=== PATIENT | male | born 1965 | race Caucasian/White ===

== ENCOUNTER → 2019-01-14 08:42 | Outpatient (CLI) | payer MEDICAID, SELFPAY ==
--- NOTE | 2019-01-14 08:45 | XR_ITS ---
PROCEDURE: XR SHOULDER LT MIN 2V CLINICAL INDICATION: left scapula fracture follow up Pain COMPARISON: XR SHOULDER LT MIN 2V from 12/27/2018 CT SHOULDER LT WO CON from 12/27/2018 FINDINGS: There is a mildly displaced fracture involving the mid to lower portion of the scapula. The distal fracture fragment is displaced laterally by 10 mm. There is dorsal displacement of the distal fracture fragment by 19 mm. The fracture margins are somewhat less distinct. Healing fractures are present involving the lateral aspect of the left 3rd 4th and 5th ribs. The glenohumeral joint and acromioclavicular joint are unremarkable. IMPRESSION: Healing displaced scapular fracture and healing left-sided rib fractures Dictated by: Kvein Garza MD 01/14/2019 09:47 Electronically signed by Kevin Garza MD in [place] 01/14/2019 09:47
== END ==
PROVIDERS: PCP Nurse Practitioner Family; Visit Provider Orthopaedic Surgery
DX: S42.112A Displaced fracture of body of scapula, left shoulder, initial encounter for closed fracture (principal)
CPT/HCPCS: 73030

== ENCOUNTER 2023-08-16 19:45 | Day surgery (SDC) | payer MEDICAID, SELFPAY ==
[2023-08-16] VITALS (12 sets, daily range): BP systolic 120–157; BP diastolic 67–106; PULSE 84–106; RESP 13–20; TEMP 36.5–36.6; O2SAT 93–100; BMI 21.7
--- NOTE | 2023-08-16 20:14 | XR_ITS ---
PROCEDURE INFORMATION: Exam: XR Left Femur Exam date and time: 08/16/2023 8:38 PM Age: 58 years old Clinical indication: Injury or trauma; Other: Cut leg with saw; Blunt trauma; Knee; Left; Additional info: Saw injury TECHNIQUE: Imaging protocol: Radiologic exam of the left femur. Views: 2 views. COMPARISON: No relevant prior studies available. FINDINGS: Bones/joints: Intramedullary macy identified within the proximal tibia. Soft tissues: There is significant soft tissue irregularity along the lateral distal femur with subcutaneous gas but no evidence for underlying osseous injury or radiopaque foreign body. Vasculature: Scattered atherosclerotic disease of the arterial vasculature. IMPRESSION: There is significant soft tissue irregularity along the lateral distal femur with subcutaneous gas but no evidence for underlying osseous injury or radiopaque foreign body.
[2023-08-16 20:23] LABS: Chloride 96 mmol/L (98-107); Potassium 3.6 mmoL/L (3.5-5.1); Sodium 130 mmol/L (136-145)
--- NOTE | 2023-08-16 20:23 | PC.NURSE ---
Spoke with Dr. Carbone and surgery team.
[2023-08-16 20:26] LABS: Alanine Aminotransferase 118 U/L (12-78); Albumin Level 4.7 g/dl (3.5-5.0); Albumin/Globulin Ratio 1.6 (1.1-1.8); Alkaline Phosphatase 95 U/L (38-126); Anion Gap 16.6 mEq/L (5-15); Aspartate Amino Transferase 104 U/L (17-59); Basophils # 0.1 K/mm3 (0-0.2); Bilirubin,Total 0.6 mg/dl (0.2-1.3); Blood Urea Nitrogen 5 mg/dl (9-20); Calcium 9.1 mg/dl (8.4-10.2); Carbon Dioxide 21 mmol/L (22.0-30.0); Creatinine Clearance Estimated 97 mL/min (50-200); Eosinophils % 0.9 % (0.1-12.0); Estimated Glomerular Filt Rate 115 ml/min (>60); GFR (African American) 139 ML/MIN (>60); Globulin 2.9 g/dL (1.3-3.2); Glucose 89 mg/dl (74-100); Hematocrit 43.1 % (42.0-52.0); Hemoglobin 14.4 g/dL (14.1-18.0); Lymphocytes # 1.8 K/mm3 (0.7-4.5); Lymphocytes % 38.3 % (10-50); Mean Corpuscular HGB Conc 33.5 g/dL (31.8-35.4); Mean Corpuscular Volume 95.5 fl (80-94); Mean Platelet Volume 7.8 fl (7.4-10.4); Monocytes # 0.6 K/mm3 (0.1-1.0); Monocytes % 12.7 % (1.7-9.3); Neutrophils # 2.2 K/mm3 (1.8-7.8); Neutrophils % 46.1 % (37.0-80.0); Platelet Count 210 K/mm3 (142-424); Red Blood Count 4.51 M/mm3 (4.60-6.20); Red Cell Distribution Width 13.2 % (11.5-17.5); Total Protein,Serum 7.6 g/dl (6.3-8.2); White Blood Count 4.8 K/mm3 (4.8-10.8)
[2023-08-16 20:33] LABS: Activated Partial Thrombo Time 30.7 seconds (22.8-30.6); INR 0.95 (0.9-1.1); Prothrombin Time 10.3 seconds (10.1-12.5)
[2023-08-16] MEDS: CEFAZOLIN SODIUM 2 GM in 0.9 % SODIUM CHLORIDE 100 ML IV (20:40)
[2023-08-16] MEDS: TET/DIPHTH/PERT-ADULT 0.5ML SYRINGE 0.5 ML IM (20:41)
--- NOTE | 2023-08-16 20:42 | ED_ITS ---
Discharge Plan Disposition Patient Disposition: Admitted Chief Complaint: Extremity Injury, Lower Referrals Follow up/Referrals: Sriia Judge APRN [Primary Care Provider] - See instructions Clinical Impressions Clinical Impression: Laceration of thigh, left, complicated Discharge ED Provider: Mercedes Swanson General Adult HPI General Chief complaint: Extremity Injury, Lower Stated complaint: LT leg lac Time Seen by Provider: 08/16/23 19:48 Mode of Arrival: Wheelchair Source of Information: Patient Limitations: Physical Limitations Description of Symptoms (Recalled from ER Triage Doc. by RN): Pt presented to ED for large deep laceration to left thigh. Pt stated he was cutting wood with a circular saw and the guard slipped up when he was setting it down and hit his leg. This happened immediately prior to coming into ED. Pt does not have numbness or tingling in leg/foot, pulses palpable. Pt is not on a blood thinner. Bleeding is controlled at this time, pulsation seen in wound. History of Present Illness HPI narrative: This patient is a 58-year-old male presenting to the emergency department for evaluation with concern for large laceration to his left thigh. He reports he was using a circular saw cutting wood when the guard slipped and the saw cut him in the lateral left thigh. This happened just prior to arrival. No other injuries noted. No numbness, tingling, or other concerns. He is not on anticoagulation. He was well prior to this. Related Data Allergies Allergy/AdvReac Type Severity Reaction Status Date / Time morphine [MORPHINE] Allergy Mild Verified 10/12/22 13:15 [facility] Disclaimer: The information contained in this section may have been updated after the patient was seen, as this information can be updated by other users. Surgical History History of appendectomy History of surgery on lower extremity Social History Smoking Status: Never smoker alcohol intake: current alcohol intake frequency: holidays/special occasions only substance use type: denies use current occupational status: other Travel in the last 8 weeks: None ROS Obtained: Yes All systems reviewed & no additional complaints except as documented Physical Exam General General appearance: alert and in no apparent distress Head Head exam: atraumatic and normocephalic Eye Eye exam: Present normal appearance, PERRL and EOMI ENT ENT exam: Present normal exam, normal oropharynx, mucous membranes moist and normal external ear exam Neck Neck exam: Present normal inspection, full ROM and trachea midline; Absent tenderness Chest Chest inspection: Present normal inspection and symmetric chest wall rise; Absent tenderness Respiratory Respiratory exam: Present normal lung sounds bilaterally; Absent respiratory distress, wheezes, stridor or accessory muscle use Cardiovascular Cardiovascular exam: Present regular rate and normal rhythm Abdominal Exam Abdominal exam: Present soft; Absent distention, tenderness or guarding Extremities Exam Extremities exam: Present full ROM and normal capillary refill; Absent tenderness or edema Expanded Lower Extremity Exam Left: Leg image: 2 1. 10 cm irregular thigh laceration with exposed muscle belly. No obvious exposed bone. No notable tendon involvement or injury that is appreciated. Neurovascularly intact distally. Wound is hemostatic. Back Exam Back exam: Present normal inspection and full ROM; Absent tenderness Neurological Exam Neurological exam: Present alert, oriented X3, CN II-XII intact and normal gait; Absent motor sensory deficit Psychiatric Psychiatric exam: Present normal affect and normal mood Skin Skin exam: Present warm and dry Medical Decision Making Medical Records Medical records reviewed: Yes I reviewed the patient's medical records. Toy Inquiry Pt receiving controlled substance: No Vital Signs: 08/16/23 19:46 08/16/23 20:22 Pulse Rate 84 Pulse Rate [Right Brachial] 103 H Respiratory Rate 18 Blood Pressure 152/97 H Blood Pressure [Right Arm] 154/106 H Blood Pressure Mean [Right Arm] 122 02 Sat by Pulse Oximetry 96 95 Oxygen Delivery Method Room Air Lab Data Lab results reviewed: Yes I reviewed the patient's lab results. Lab Results 08/16/23 20:00: WBC 4.8, RBC 4.51 L, Hgb 14.4, Hct 43.1, MCV 95.5 H, MCH 32.0 H, MCHC 33.5, RDW 13.2, Plt Count 210, MPV 7.8, Neut % (Auto) 46.1, Lymph % (Auto) 38.3, [place]ock[place] % (Auto) 12.7 H, Eos % (Auto) 0.9, Baso % (Auto) 2.0, Neut # (Auto) 2.2, Lymph # (Auto) 1.8, [place]ock[place] # (Auto) 0.6, Eos # (Auto) 0.0, Baso # (Auto) 0.1, PT 10.3, INR 0.95, APTT 30.7 H, Sodium 130 L, Potassium 3.6, Chloride 96 L, C arbon Dioxide 21 L, Anion Gap 16.6 H, BUN 5 L, Creatinine 0.70, Estimated Creat Clear 97, Estimated GFR 115, Est GFR ( Amer) 139, Glucose 89, Calcium 9.1, Total Bilirubin 0.6, AST 104 H, ALT 118 H, Alkaline Phosphatase 95, Total Protein 7.6, Albumin 4.7, Globulin 2.9, Albumin/Globulin Ratio 1.6 08/16/23 20:00 08/16/23 20:00 Orders (Tests/Meds): ED MEDICATIONS Discontinued Medications Generic Name Dose Route Start Last Admin Trade Name Freq PRN Reason Stop Dose Admin Cefazolin Sodium 2 gm/ Sodium 100 mls @ 200 mls/hr 08/16/23 20:15 08/16/23 20:40 Chloride IV 08/16/23 20:44 200 mls/hr ONCE ONE Administration Tetanus/Reduced Diphtheria/Acell Pertussis 0.5 ml 08/16/23 20:14 08/16/23 20:41 Tet/Diphth/Pert-Adult 0.5ml Syringe IM 08/16/23 20:15 0.5 ml .ONCE ONE Administration ORDERS Category Date Time Status XR femur LT 2V Stat Exams 08/16/23 20:14 Ordered Activated Partial Thrombo Time Stat Lab 08/16/23 20:00 Completed CMP [Comprehensive Metabolic Panel] Stat Lab 08/16/23 20:00 Completed Complete Blood Count Auto Diff Stat Lab 08/16/23 20:00 Completed Prothrombin Time INR Stat Lab 08/16/23 20:00 Completed Medical Decision Narrative: In summary, this patient is a 58-year-old male presenting to the Emergency Department for evaluation of a laceration to the left thigh from a circular saw. Differential diagnoses considered include but are not limited to laceration, abrasion, foreign body, open fracture. Ruling out the most morbid conditions drove assessment. On exam, the patient is well-appearing. He is neurovascularly intact in his lower extremity and the wound is hemostatic. He does have a very large wound with exposed muscle belly. Workup included CBC, CMP, PT, PTT. Labs are reassuring without acutely concerning abnormality. Surgical consult was obtained and they recommended orthopedic evaluation. Given this, I had an interactive discussion with Dr. Carbone with orthopedics who advised that he would take the patient to the OR for washout and drainage. Patient was given IV Ancef and Tdap. Patient was taken to the OR in stable condition for definitive management of this large laceration to his left thigh. Critical Care Critical Care Time Critical Care Time: No
--- NOTE | 2023-08-16 21:08 | ECG_ITS ---
APPROVED REPORT Exam: Resting ECG HR:80 bpm ECG Measurements Heart Rate 80 AXES DE 167 P 59 QRSd 117 QRS -34 QT 390 T 23 QTc 426 Conclusion SINUS RHYTHM LEFT AXIS DEVIATION [QRS AXIS < -30] MODERATE INTRAVENTRICULAR CONDUCTION DELAY [110+ ms QRS DURATION] Electronically signed by : CATRACHITO MILLER, 08/16/2023 23:23:47
--- NOTE | 2023-08-16 21:14 | EXP.ANES.CKL ---
[facility] Disclaimer: The information contained in this section may have been updated after the patient was seen, as this information can be updated by other users. Surgical History History of appendectomy History of surgery on lower extremity Social History Smoking Status: Never smoker alcohol intake: current alcohol intake frequency: holidays/special occasions only substance use type: denies use current occupational status: other Travel in the last 8 weeks: None [facility] Anesthesia Checklist Patient Identification Patient Identification: Arm Band and Verbal (Name & ) Structural Data Admitted From: Emergency Dept Planned Operative Procedure/s: Irrigation and debridement Consent for Planned Operative Procedure(s) Verified: Yes Verified Documents: Surgical Consent NPO Status Verified Time NPO: 18:00 Chart Verification Results Verified: CBC and BMP Additional verifications Anesthesia Reactions: No Airway Assessment Mallampati Score:: Class II C-Spine Mobility Assessed: Yes TMJ Mobility Assessed: Yes Dentition: Good Dentition Neurological Assessment Level of Consciousness: Awake Hx Seizures: No Numbness or tingling in extremities: No Anesthesia Plan Anesthesia Risk discussed: Yes Anesthesia Plan: Verified ASA Class: II Anesthesia Type: General
[2023-08-16] MEDS: BUPIVACAINE 0.25% 30ML VIAL 75 MG (22:30)
--- NOTE | 2023-08-16 22:40 | EXP.OP.NOTE ---
Date of procedure: 08/16/23 Pre-op Diagnosis:: Traumatic laceration complicated contaminated left thigh Post-op Diagnosis:: Same Procedure performed:: Irrigation and sharp debridement of complex wound left thigh with complex wound closure 10 inches x 2 inches Surgeon:: Jareth Carbone DO SALES [employer] MARKETING ANALYST:: Mimi Diana Anesthesia: GETA Estimated blood loss (mL): 10 Operative findings:: Contaminated wound with jagged edge of skin and depth through skin subcutaneous tissue fascia down into muscle left thigh Operative note:: Patient is identified preoperatively left thigh marked with yes and my initials transferred operative suite given and general endotracheal anesthesia given the contaminated nature of the complex laceration he was taken to the OR in an emergent situation for cleanout and irrigation and debridement. Once anesthesia was administered the left lower extremity was prepped and draped normal sterile fashion once prepped and draped final operative timeout performed to identify proper patient procedure and extremity. Everyone involved the case agreed. No counter indications to beginning. Did receive preoperative antibiotics. There is a large laceration on the lateral aspect of the thigh which included the skin and subcutaneous tissue fascia into the muscle of the thigh there is no large amount of bleeding present tourniquet was not inflated during the surgery. Gross contamination was removed and Pulsavac was used for cleaning the incision. Significant copious irrigation was performed. Reevaluation of the wound to remove any contamination with a rongeur was performed. Sharp debridement was then performed around the skin edges which were cut and jagged from the circular saw cut. This damaged tissue around the edges of the wound was sharply debrided with a knife and removed. Copious irrigation repeated with the Pulsavac. And then the fascial layer was closed with 0 Vicryl subcutaneous 2-0 Vicryl surgical clips in the skin for closure loose closure was performed Sterile dressing placed Dieter bandage patient waken anesthesia taken recovery room in stable condition. Condition: stable Disposition: PACU Complications:: None apparent
--- NOTE | 2023-08-16 22:40 | EXP.ANES.I ---
[facility] Anesthesia Record Part I Anesthesia Record I Intake, IV Amount: 800 Hydration: Adequate Estimated blood loss (mL): 5 Urine output (mL): 0 Blood Pressure: 123/78 SaO2: 93 Pulse Rate: 100 Airway Patency: Patent Respiratory Rate: 13 Temperature: 97.7 F Patient is:: Drowsy and Oral/Nasal airway Stable to PACU at:: 22:35
[2023-08-17 08:27] VITALS: BP 147/88; PULSE 98; RESP 20; TEMP 36.6; O2SAT 100
--- NOTE | 2023-08-17 08:27 | EXP.ANES.II ---
[facility] Anesthesia Record Part II Anesthesia Record Part II Discharge Time: 23:05 Destination: Surgical Day Care (OP Surgery) PACU nurse assessment reviewed?: Yes Patient Condition:: Good Anesthesia Complications:: None Swallowing reflex intact?: Yes Airway Patency: Patent Cyanosis?: No Blood Pressure: 147/88 SaO2: 100 Respiratory Rate: 20 Pulse Rate: 98 Temperature: 97.8 F Mental Status: Alert & Oriented Pain level:: 0 Nausea and/or vomitting:: None Intake, IV Amount: 0 Hydration: Adequate
== END 2023-08-17 00:41 | disposition home or self-care (01) ==
LOC: ER 20:46 → SDC 21:35
PROVIDERS: Emergency Provider Emergency Medicine; PCP Nurse Practitioner Family; Visit Provider Orthopaedic Surgery
PROC: (CPT 13121; principal; 2023-08-16 09:20)
DX: S71.122A Laceration with foreign body, left thigh, initial encounter (principal); W31.2XXA Contact with powered woodworking and forming machines, initial encounter; Z23 Encounter for immunization
CPT/HCPCS: 13121; 13122 ×4; 73552; 80053; 85025; 85610; 85730; 90471; 90715; 93005; 96374; 99285; J0690; J2405

== ENCOUNTER 2024-01-09 12:02 | Outpatient (CLI) | payer MEDICAID, SELFPAY ==
--- NOTE | 2024-01-09 12:35 | ECG_ITS ---
APPROVED REPORT Exam: Resting ECG HR:91 bpm ECG Measurements Heart Rate 91 AXES IL 163 P 57 QRSd 96 QRS -25 QT 346 T 44 QTc 395 Conclusion SINUS RHYTHM LAD BORDERLINE ECG UNCONFIRMED REPORT Electronically signed by : Obdulio Orourke MD 01/11/2024 09:16:50
[2024-01-09 12:39] VITALS: BMI 22.7
[2024-01-09 13:20] LABS: Basophils # 0.1 K/mm3 (0-0.2); Basophils % 1.9 % (0.1-2.0); Eosinophils # 0.1 K/mm3 (0.0-0.4); Eosinophils % 2.2 % (0.1-12.0); Hematocrit 42.3 % (42.0-52.0); Hemoglobin 14.7 g/dL (14.1-18.0); Lymphocytes # 1.4 K/mm3 (0.7-4.5); Lymphocytes % 25.7 % (10-50); Mean Corpuscular HGB Conc 34.8 g/dL (31.8-35.4); Mean Corpuscular Hemoglobin 32.1 pg (27.0-31.2); Mean Corpuscular Volume 92.3 fl (80-94); Mean Platelet Volume 6.9 fl (7.4-10.4); Monocytes # 0.6 K/mm3 (0.1-1.0); Monocytes % 11.1 % (1.7-9.3); Neutrophils # 3.2 K/mm3 (1.8-7.8); Neutrophils % 59.2 % (37.0-80.0); Platelet Count 225 K/mm3 (142-424); Red Blood Count 4.59 M/mm3 (4.60-6.20); Red Cell Distribution Width 13.5 % (11.5-17.5); White Blood Count 5.5 K/mm3 (4.8-10.8)
[2024-01-09 13:28] LABS: Chloride 93 mmol/L (98-107); Potassium 3.9 mmoL/L (3.5-5.1); Sodium 128 mmol/L (136-145)
[2024-01-09 13:31] LABS: Anion Gap 12.9 mEq/L (5-15); Blood Urea Nitrogen 3 mg/dl (9-20); Calcium 9.1 mg/dl (8.4-10.2); Carbon Dioxide 26 mmol/L (22.0-30.0); Creatinine Clearance Estimated 122 mL/min (50-200); Estimated Glomerular Filt Rate 137 ml/min (>60); GFR (African American) 166 ML/MIN (>60); Glucose 86 mg/dl (74-100)
== END 2024-01-09 23:59 | disposition home or self-care (01) ==
PROVIDERS: Nurse Anesthetist, Certified Registered; PCP Physician Assistant; Visit Provider Surgery
DX: R94.31 Abnormal electrocardiogram [ECG] [EKG] (principal)
CPT/HCPCS: 80048; 85025; 93005

== ENCOUNTER 2024-01-14 10:27 | Day surgery (SDC) | payer MEDICAID, SELFPAY ==
[2024-01-09 12:22] VITALS: BMI 22.7
--- NOTE | 2024-01-14 10:59 | SUR.PREOP ---
Case cancelled per Dr Toure. Pt fell at home on Sunday and states He broke some ribs and hit his head pt did not get checked out after fall. Pt send to ER to get checked out per Dr toure.
== END 2024-01-14 11:12 | disposition home or self-care (01) ==
LOC: OR 10:29
PROVIDERS: PCP Physician Assistant; Visit Provider Surgery
DX: L72.3 Sebaceous cyst (principal); Z53.8 Procedure and treatment not carried out for other reasons

== ENCOUNTER 2024-01-14 11:07 | Emergency (ER) | payer MEDICAID, SELFPAY ==
[2024-01-14 11:08] VITALS: BP 188/127; PULSE 92; RESP 16; TEMP 36.7; O2SAT 98; BMI 22.7
[2024-01-14 11:13] VITALS: BP 188/127; PULSE 89; O2SAT 97
[2024-01-14 11:30] VITALS: BP 159/113; PULSE 86; O2SAT 95
[2024-01-14 12:00] VITALS: BP 170/111; PULSE 90; O2SAT 96
--- NOTE | 2024-01-14 12:08 | CT_ITS ---
FINAL REPORT TECHNIQUE: Axial imaging of the chest was obtained without contrast. Reformatted images were also obtained and reviewed.This study was performed with techniques to keep radiation doses as low as reasonably achievable, (ALARA). Individualized dose reduction technique using automated exposure control or adjustment of mA and/or kV according to the patient's size were employed. CLINICAL HISTORY: fall, left rib pain FINDINGS: There is no axillary adenopathy. There is no hilar or mediastinal mass or adenopathy. Heart size is normal. There is no pericardial or pleural effusion. The ascending aorta measures up to 4.0 cm in diameter. There are dense coronary artery calcifications. Limited images of the upper abdomen are unremarkable. There is scarring or atelectasis of the left lung base. No suspicious infiltrate or nodule is identified on lung window images. There are healing left ninth, 10th and 11th posterior rib fractures with callus formation. There is no pneumothorax. IMPRESSION: Subacute fractures of the left posterior 9th, 10th and 11th ribs. Reviewed, Interpreted and Dictated by Rafael Dorantes MD Transcribed by Aisha Haro Authenticated and [facility]
--- NOTE | 2024-01-14 12:10 | ED_ITS ---
Discharge Plan Disposition Patient Disposition: Home, Self-Care Prescriptions Prescriptions: New hydrocodone-acetaminophen 5-325 mg tablet 1 tab PO Q6H PRN (Reason: pain) 3 Days Qty: 12 0RF No Action linezolid [Zyvox] 600 mg tablet 600 mg PO BID 10 Days Qty: 20 0RF Referrals Follow up/Referrals: Emily Arnold PA [Primary Care Provider] - See instructions Activity Restrictions/Add. Instructions Additional Instructions/Restrictions: As discussed you have 3 rib fractures on the left side please return with any shortness of breath or high fevers or worsening cough. Please make sure you are using your incentive spirometer 10 times every hour while awake. You may follow-up primary care doctor as needed. Return with any significant worsening symptoms. Clinical Impressions Clinical Impression: Multiple rib fractures Print Language Print Language: Tongan Discharge ED Provider: Torin Madrigal General Adult HPI General Chief complaint: PAIN Stated complaint: Fall 01/11- poss broken ribs, sent by [employer] Time Seen by Provider: 01/14/24 12:04 Mode of Arrival: Wheelchair Source of Information: Patient Limitations: No Limitations Description of Symptoms (Recalled from ER Triage Doc. by RN): Patient states he was being seen by Dr. Toure when he complained of left rib pain from a fall on Sunday. Dr. Toure sent patient to be evaluated in the ER. History of Present Illness HPI narrative: Patient is a 58-year-old male who presents today for concerns of a rib fracture. States he was in Dr. Toure's clinic being evaluated for a cyst resection on the side of his neck but told Dr. Mcgill that he fell on Sunday landing on the left lateral aspect of his chest wall and is had severe pain since that time. Dr. Toure sent him to the emergency department for further evaluation. Patient denies any loss of consciousness head anterior chest abdomen or pelvis pain any anticoagulants etc. Patient only complains of pain on the left lateral aspect of his thoracic cavity. Related Data Previous Rx's ?Medication ?Instructions ?Recorded linezolid 600 mg tablet (Zyvox) 600 mg PO BID 10 days #20 tabs 12/25/23 hydrocodone 5 mg-acetaminophen 325 1 tab PO Q6H PRN pain 3 days #12 01/14/24 mg tablet tabs Allergies Allergy/AdvReac Type Severity Reaction Status Date / Time morphine [MORPHINE] Allergy Mild Verified 01/03/24 09:27 [facility] Disclaimer: The information contained in this section may have been updated after the patient was seen, as this information can be updated by other users. Medical History (Updated 01/14/24 @ 13:51 by Torin Madrigal MD) No significant past medical history Surgical History History of appendectomy History of surgery on lower extremity Family History (Updated 01/09/24 @ 12:19 by Umberto Paez RN) Other Family history of heart disease Social History (Updated 01/09/24 @ 12:20 by Umberto Paez RN) Smoking Status: Never smoker alcohol intake: never substance use type: denies use current occupational status: employed and other Travel in the last 8 weeks: None Other Medical History Have you received the Flu Vaccine for this season: No Have you received the Pneumonia Vaccine: Yes ROS Obtained: Yes All systems reviewed & no additional complaints except as documented Physical Exam General General appearance: alert and in no apparent distress Head Head exam: atraumatic and normocephalic Neck Neck exam: Absent tenderness Chest Chest inspection: Present tenderness (Left lateral chest wall tenderness) Respiratory Respiratory exam: Present normal lung sounds bilaterally and respiratory distress Cardiovascular Cardiovascular exam: Present regular rate and normal rhythm Abdominal Exam Abdominal exam: Present soft; Absent distention or tenderness Extremities Exam Extremities exam: Present other (All long bones palpated without any significant pain or) Neurological Exam Neurological exam: Present alert and oriented X3 Medical Decision Making Medical Records Screening: Per USPSTF and CDC recommendations, given the prevalence of disease in our region, it is our hospital?s policy to screen for HIV and viral Hepatitis for all patients aged 18 and over and those with ongoing risk factors. Toy Inquiry Pt receiving controlled substance: No Vital Signs: 01/14/24 11:08 01/14/24 11:13 01/14/24 11:30 Temperature 98.0 F Temperature Source Oral Pulse Rate 89 86 Pulse Rate [Radial] 92 H Respiratory Rate 16 Blood Pressure 188/127 H 159/113 H Blood Pressure [Right Arm] 188/127 H Blood Pressure Mean 147 128 Blood Pressure Mean [Right Arm] 147 Blood Pressure Source [Right Arm] Automatic Cuff Blood Pressure Position [Right Arm] Sitting 02 Sat by Pulse Oximetry 98 97 95 Oxygen Delivery Method Room Air 01/14/24 12:00 Temperature Temperature Source Pulse Rate 90 Pulse Rate [Radial] Respiratory Rate Blood Pressure 170/111 H Blood Pressure [Right Arm] Blood Pressure Mean 134 Blood Pressure Mean [Right Arm] Blood Pressure Source [Right Arm] Blood Pressure Position [Right Arm] 02 Sat by Pulse Oximetry 96 Oxygen Delivery Method Orders (Tests/Meds): ED MEDICATIONS Discontinued Medications Generic Name Dose Route Start Last Admin Trade Name Freq PRN Reason Stop Dose Admin Ketorolac Tromethamine 15 mg 01/14/24 12:09 01/14/24 12:21 Ketorolac 30mg/Ml Vial IV 01/14/24 12:10 15 mg ONCE ONE Administration ORDERS Category Date Time Status CT chest wo con Stat Cat Scan 01/14/24 12:08 Completed Medical Decision Narrative: Patient with above history and physical [place] CT head negative Nexus negative no anterior chest abdomen or pelvis or long bone pain. He only has pain in the left lateral aspect of his chest wall will get a noncontrasted CT scan to evaluate for multiple rib fractures. IV pain medicine has been administered will reassess. CT scan performed which I personally interpreted which shows 3 left posterior rib fractures no evidence of pulmonary contusion hydrothorax thorax pneumothorax etc. Incentive spirometer given to the patient he had significant improvement with his Toradol. He has been told to take [id number] medications and hydrocodone as needed for breakthrough pain and to return with any evidence of pneumonia. Patient was discharged in stable condition. Critical Care Critical Care Time Critical Care Time: No
[2024-01-14] MEDS: KETOROLAC 30MG/ML VIAL 15 MG IV (12:21)
--- NOTE | 2024-01-14 12:50 | PC.NURSE ---
pt given incentive spirometer, proper use demonstrated
[2024-01-14 14:01] VITALS: BP 182/11; PULSE 92; RESP 18; TEMP 36.6; O2SAT 98
== END 2024-01-14 14:01 | disposition home or self-care (01) ==
PROVIDERS: Emergency Provider Student in an Organized Health Care Education/Training Program; PCP Physician Assistant
DX: S22.42XA Multiple fractures of ribs, left side, initial encounter for closed fracture (principal); R07.82 Intercostal pain; W18.30XA Fall on same level, unspecified, initial encounter; Y93.9 Activity, unspecified; Y92.9 Unspecified place or not applicable
CPT/HCPCS: 71250; 96374; 99284; J1885

== ENCOUNTER 2024-01-21 10:44 | Outpatient (CLI) | payer MEDICAID, SELFPAY ==
[2024-01-21 19:24] LABS: Cholesterol 291 mg/dl (140-200); Triglycerides 109 mg/dl (30-150); VLDL Cholesterol 22 mg/dL (0-40)
[2024-01-21 19:36] LABS: Direct LDL Cholesterol 140.88 mg/dL (100-129)
[2024-01-21 19:45] LABS: Chol/HDL Ratio 2.4 (1-3.5); HDL Cholesterol 120 mg/dl (40-60)
[2024-01-21 19:53] LABS: Prostate Specific Ag Screen 1.2 ng/ml (0.0-4.0); Thyroid Stimulating Hormone 1.65 uIU/mL (0.465-4.68)
== END 2024-01-21 23:59 | disposition home or self-care (01) ==
LOC: LAB.DROPOF 01-22 10:45
PROVIDERS: PCP Family Medicine; Visit Provider Family Medicine
DX: Z12.5 Encounter for screening for malignant neoplasm of prostate (principal); Z13.1 Encounter for screening for diabetes mellitus; R53.83 Other fatigue; Z00.00 Encounter for general adult medical examination without abnormal findings
CPT/HCPCS: 80061; 83036; 84443; G0103

== ENCOUNTER 2024-03-06 13:52 | Outpatient (POV) | payer MEDICAID, SELFPAY | END 2024-03-06 23:59 | disposition home or self-care (01) | LOC: SC 14:09 | PROVIDERS: Visit Provider Specialist/Technologist | DX: Z00.00 Encounter for general adult medical examination without abnormal findings (principal) ==

== ENCOUNTER 2024-04-02 12:25 | Emergency (ER) | payer MEDICAID, SELFPAY ==
--- NOTE | 2024-04-02 12:38 | XR_ITS ---
PROCEDURE INFORMATION: Exam: XR Left Ankle Exam date and time: 04/02/2024 12:53 PM Age: 58 years old Clinical indication: Injury or trauma; Fall; Blunt trauma; Ankle; Left TECHNIQUE: Imaging protocol: Radiologic exam of the left ankle. Views: 3 or more views. COMPARISON: No relevant prior studies available. FINDINGS: Bones/joints: There is an old, healed distal left tibia fracture with medullary macy present. There is an oblique nondisplaced fracture through the distal left fibula. The tibiotalar joint space is normal. The talus and calcaneus are intact. Soft tissues: Lateral left ankle soft tissue swelling. IMPRESSION: Oblique nondisplaced fracture through the distal left fibula.
--- NOTE | 2024-04-02 12:38 | XR_ITS ---
PROCEDURE INFORMATION: Exam: XR Left Tibia and Fibula Exam date and time: 04/02/2024 12:56 PM Age: 58 years old Clinical indication: Injury or trauma; Fall; Blunt trauma; Lower leg; Left TECHNIQUE: Imaging protocol: Radiologic exam of the left tibia and fibula. Views: 2 views. COMPARISON: CR XR ANKLE LT MIN 3V 04/02/2024 12:53 PM FINDINGS: Bones/joints: There is an old healed distal left tibia fracture. There is an old healed proximal left fibula fracture. There is a medullary rods spanning the tibia. There is an oblique fracture through the distal left fibula. Soft tissues: Lateral left ankle soft tissue swelling. IMPRESSION: 1. Old healed distal left tibia fracture and old healed proximal left fibula fracture. 2. Acute distal left fibula fracture with associated soft tissue swelling.
[2024-04-02 13:05] VITALS: BP 127/87; PULSE 101; RESP 18; TEMP 36.6; O2SAT 99; BMI 22.7
--- NOTE | 2024-04-02 13:11 | ED_ITS ---
Discharge Plan Disposition Patient Disposition: Home, Self-Care Condition: Good Prescriptions Prescriptions: No Action cetirizine [All Day Allergy (cetirizine)] 10 mg tablet 10 mg PO DAILY Qty: 30 0RF azelastine 137 mcg (0.1 %) spray,non-aerosol 137 mcg intranasal BID Qty: 8.22 2RF Rx Instructions: administer into each nostril atorvastatin [Lipitor] 10 mg tablet 10 mg PO DAILY Qty: 30 2RF Referrals Follow up/Referrals: Andree Mullins APRN [Primary Care Provider] - See instructions Siobhan Randall DPM [Staff Physician] - See instructions Activity Restrictions/Add. Instructions Additional Instructions/Restrictions: Rest the extremity, apply ice for 15 minutes as tolerated three or four times per day, Elevate the extremity as tolerated while you are resting. Take ibuprofen or tylenol for pain. Follow up with Dr. Randall (podiatry). I put in a referral but you need to call her office and schedule an appointment. Her office phone number will be on this paperwork. Please call her office in the morning to get a follow up appointment there. Follow up with your regular doctor. GO TO THE ER FOR ANY WORSENING SYMPTOMS Clinical Impressions Clinical Impression: Closed fracture of left distal fibula Instructions Patient Instructions: How to Use Crutches, How to Take Care of Your Splint, Fibula Shaft Fracture Print Language Print Language: Occitan Discharge ED Provider: Amador Barajas [facility] HPI General Stated complaint: AO 03/31/24, inj left leg Mode of Arrival: Ambulatory Source of Information: Patient Time Seen by Provider: 04/02/24 13:08 Description of Symptoms (Recalled from Triage Doc. by RN): LEFT ANKLE INJURY, ROLLED IT HEENT Symptoms (Recalled from RN notes): No Resp Symptoms (Recalled from RN notes): No Skin Symptoms (Recalled from RN notes): No MS Symptoms (Recalled from RN notes): Yes Functional Status (Recalled from RN notes): UNABLE TO STAND ONIT History of Present Illness Provider Complaint: He states that 2 days ago he tripped over a piece of firewood and twisted his left ankle. He has had left ankle pain and swelling since then. He came in today because he states that it seems like it is getting worse. Related Data Previous Rx's ?Medication ?Instructions ?Recorded azelastine 137 mcg (0.1 %) nasal 137 mcg (0.137 mL) intranasal BID 01/21/24 spray #8.22 mL cetirizine 10 mg tablet (All Day 10 mg PO DAILY #30 tabs 01/21/24 Allergy (cetirizine)) atorvastatin 10 mg tablet (Lipitor) 10 mg PO DAILY #30 tabs 01/24/24 Allergies Allergy/AdvReac Type Severity Reaction Status Date / Time morphine (MORPHINE) Allergy Mild Verified 04/03/24 10:39 Worker's Comp Is this a Worker's Comp case?: No [facility] Disclaimer: The information contained in this section may have been updated after the patient was seen, as this information can be updated by other users. Medical History Deviated septum Patient was educated that if he was having issues breathing that he could consider having his septum repaired Hearing loss Patient educated that if he has hearing loss, he could possibly qualify for hearing aides Tinnitus No significant past medical history Surgical History History of appendectomy History of surgery on lower extremity Family History Other Family history of heart disease Social History Smoking Status: Never smoker alcohol intake: never substance use type: denies use current occupational status: employed and other Travel in the last 8 weeks: None Have you lived/traveled outside [place] in past 30 days?: No Contact w/someone who lives/traveled outside US past 30 days?: No Exposure to someone with infectious disease in past 14 days?: No Do you have a fever (greater than 100.4 F or 38 C)?: No Have you tested positive for COVID-19: No Exposed to someone with COVID-19 in past 14 days?: No Do you have a sore throat?: No Do you have a cough?: No Do you have shortness of breath?: No Do you have a headache?: No Do you have any weakness?: No Are you experiencing any nausea/vomitting?: No Do you have any diarrhea?: No Are you experiencing any unusual bleeding?: No Do you have any muscle aches/pain?: No Do you have any abdominal pain?: No Are you experiencing loss of taste or smell?: No ROS Obtained: Yes All systems reviewed & no additional complaints except as documented Constitutional Constitutional: Denies chills and Denies fever(s) Eyes Eyes: Denies eye discharge ENT Ears, Nose, Mouth, and Throat: Denies dizziness, Denies otalgia and Denies sore throat Cardiovascular Cardiovascular: Denies chest pain Respiratory Respiratory: Denies shortness of breath, Denies chest congestion, Denies cough, Denies stridor and Denies wheezing Gastrointestinal Gastrointestingal: Denies nausea or vomiting Musculoskeletal Musculoskeletal: Reports as per HPI Integumentary/Breasts Skin/Breast: Denies redness, Denies rash and Denies wounds Neurologic Neurologic: Denies dizziness and Denies paresthesias Allergic/Immunologic Allergic/Immunologic: Denies wheezing Physical Exam General General appearance: alert and in no apparent distress Head Head exam: atraumatic, normocephalic and normal inspection Eye Eye exam: Present normal appearance, PERRL and EOMI ENT ENT exam: Present normal exam, normal oropharynx, mucous membranes moist, TM's normal bilaterally and normal external ear exam Neck Neck exam: Present normal inspection, full ROM and trachea midline; Absent meningismus or lymphadenopathy Chest Chest inspection: Present normal inspection and symmetric chest wall rise; Absent tenderness Respiratory Respiratory exam: Present normal lung sounds bilaterally; Absent respiratory d istress Cardiovascular Cardiovascular exam: Present regular rate and normal rhythm; Absent JVD Abdominal Exam Abdominal exam: Present soft and normal bowel sounds; Absent distention, tenderness or guarding Extremities Exam Extremities exam: Present normal capillary refill; Absent calf tenderness Expanded Lower Extremity Exam Left: Knee exam: Present normal inspection, full ROM and knee extension intact; Absent tenderness, swelling, abrasion, laceration, ecchymosis, deformity, crepitus, dislocation, erythema, effusion, anterior drawer sign, posterior draw sign, pain with valgus, laxity with valgus, pain with varus or laxity with varus Lower leg exam: Present full ROM, tenderness, swelling and Achilles tendon intact; Absent abrasion, laceration, ecchymosis, deformity, crepitus, dislocation, erythema, palpable cord or Homans' sign Ankle exam: Present tenderness, swelling and ecchymosis; Absent full ROM, abrasion, laceration, deformity, crepitus, dislocation, erythema, tenderness over talofibular lig or anterior draw sign Foot/toe exam: Present tenderness, swelling and ecchymosis; Absent full ROM, abrasion, laceration, deformity, crepitus, dislocation, erythema, amputation, puncture wound, foreign body, calcaneal tenderness, tenderness at base of 5th metatarsal, nail avulsion or subungual hematoma Neurovascular/Tendon exam: Present normal capillary refill, normal 2-point discrimination and normal fine/light touch; Absent pulse deficit, motor deficit, sensory deficit, tendon deficit, extremity cold to touch or pallor Gait: observed and limited by pain Back Exam Back exam: Present normal inspection; Absent tenderness Neurological Exam Neurological exam: Present alert and oriented X3 Psychiatric Psychiatric exam: Present normal affect and normal mood Skin Skin exam: Present warm, dry, intact and normal color Lymphatic Lymphatic Findings: no adenopathy Medical Decision Making Medical Records Medical records reviewed: No I reviewed the patient's medical records. Screening: Per USPSTF and CDC recommendations, given the prevalence of disease in our region, it is our hospital?s policy to screen for HIV and viral Hepatitis for all patients aged 18 and over and those with ongoing risk factors. Toy Inquiry Pt receiving controlled substance: No Vital Signs: 04/02/24 13:05 Temperature 97.9 F Temperature Source Oral Pulse Rate [Left Brachial] 101 H Respiratory Rate 18 Blood Pressure [Left Arm] 127/87 Blood Pressure Mean [Left Arm] 100 02 Sat by Pulse Oximetry 99 Orders (Tests/Meds): ORDERS Category Date Time Status Fibula/tibia XR left 2 views [XR tibia fibula LT 2V] Exams 04/02/24 13:04 Ordered Stat Knee XR left 3 views [XR knee LT 3V] Stat Exams 04/02/24 12:38 Stop Req XR ankle LT min 3V Stat Exams 04/02/24 12:38 Ordered Procedures Risk/Benefits of Procedure(s) Were Explained: Yes Orthopedic Splinting/Casting Injury #1: Side: left Lower Extremity Injury Location: lower leg, ankle and foot Lower Extremity Immobilizer: posterior splint Other Orthopedic Equipment: crutches Post Cast/Splinting Neuro Status: intact and no change Post Cast/Splinting Vasc Status: intact and no change
[2024-04-02 15:12] VITALS: BP 127/87; PULSE 101; RESP 18; TEMP 36.6
== END 2024-04-02 15:12 | disposition home or self-care (01) ==
PROVIDERS: Emergency Provider Nurse Practitioner Family; PCP Family Medicine
DX: S82.832A Other fracture of upper and lower end of left fibula, initial encounter for closed fracture (principal); X50.0XXA Overexertion from strenuous movement or load, initial encounter
CPT/HCPCS: 29515; 73590; 73610; 99214; G0382

== ENCOUNTER 2024-04-08 15:08 | Outpatient (CLI) | payer MEDICAID, SELFPAY ==
--- NOTE | 2024-04-08 15:10 | CA_ITS ---
FINAL REPORT TECHNIQUE: extremity venous duplex was performed with augmentation and compression. CLINICAL HISTORY: LT FIBULAR FX,EDEMA AND REDNESS LLE COMPARISON: None FINDINGS: Proper flow is seen throughout the deep venous system. There is no evidence of deep venous thrombosis. IMPRESSION: no left lower extremity deep venous thrombosis. Reviewed, Interpreted and Dictated by Rafael Dorantes MD Transcribed by Nancy Olmedo Authenticated and [facility]
--- NOTE | 2024-04-08 15:43 | XR_ITS ---
FINAL REPORT CLINICAL HISTORY: .pain..edema COMPARISON: None FINDINGS: LEFT FOOT Three views of the left foot demonstrate no acute fracture or dislocation. The visualized joint spaces are normally aligned. The soft tissues are unremarkable. IMPRESSION: No acute bony abnormality. Reviewed, Interpreted and Dictated by Rafael Dorantes MD Transcribed by Nancy Olmedo Authenticated and [facility]
--- NOTE | 2024-04-08 15:43 | XR_ITS ---
FINAL REPORT CLINICAL HISTORY: edema..pain COMPARISON: None FINDINGS: LEFT ANKLE the distal tibia bridging a fracture deformity of the lower tibia. There is a more acute appearing fracture of the lateral malleolus, of uncertain chronicity. No prior films are available for comparison purposes. Would correlate with patient's clinical history. The visualized joint spaces are normally aligned. The soft tissues are unremarkable. IMPRESSION: An IM macy bridges a fracture deformity of the left distal tibia. There also appears to be a more acute fracture of the lateral malleolus, and would correlate with clinical history or prior radiographs. Reviewed, Interpreted and Dictated by Rafael Dorantes MD Transcribed by Nancy Olmedo Authenticated and [facility]
[2024-04-08 15:57] LABS: Basophils # 0.1 K/mm3 (0-0.2); Eosinophils # 0.1 K/mm3 (0.0-0.4); Eosinophils % 1.1 % (0.1-12.0); Hematocrit 40.2 % (42.0-52.0); Hemoglobin 13.8 g/dL (14.1-18.0); Lymphocytes # 1.4 K/mm3 (0.7-4.5); Lymphocytes % 20.4 % (10-50); Mean Corpuscular HGB Conc 34.3 g/dL (31.8-35.4); Mean Corpuscular Hemoglobin 31.6 pg (27.0-31.2); Mean Platelet Volume 9.1 fl (7.4-10.4); Monocytes # 0.9 K/mm3 (0.1-1.0); Neutrophils # 4.5 K/mm3 (1.8-7.8); Neutrophils % 63.6 % (37.0-80.0); Platelet Count 375 K/mm3 (142-424); Red Blood Count 4.37 M/mm3 (4.60-6.20); Red Cell Distribution Width 12.2 % (11.5-17.5); White Blood Count 7.1 K/mm3 (4.8-10.8)
[2024-04-08 16:04] LABS: D-Dimer 1.15 ug/mL (0.0-0.5)
[2024-04-08 16:21] LABS: Erythrocyte Sedimentation Rate 2 mm/hr (0-20)
[2024-04-08 16:31] LABS: Alanine Aminotransferase 22 U/L (12-78); Albumin Level 4.4 g/dl (3.5-5.0); Albumin/Globulin Ratio 1.8 (1.1-1.8); Alkaline Phosphatase 79 U/L (38-126); Anion Gap 14.1 mEq/L (5-15); Aspartate Amino Transferase 30 U/L (17-59); Bilirubin,Total 0.7 mg/dl (0.2-1.3); Blood Urea Nitrogen 12 mg/dl (9-20); Calcium 9.7 mg/dl (8.4-10.2); Carbon Dioxide 23 mmol/L (22.0-30.0); Chloride 103 mmol/L (98-107); Estimated Glomerular Filt Rate 137 ml/min (>60); GFR (African American) 166 ML/MIN (>60); Globulin 2.4 g/dL (1.3-3.2); Glucose 84 mg/dl (74-100); Potassium 4.1 mmoL/L (3.5-5.1); Sodium 136 mmol/L (136-145); Total Protein,Serum 6.8 g/dl (6.3-8.2)
[2024-04-08 16:36] LABS: C-Reactive Protein 27.4 mg/L (0-4)
[2024-04-17 10:10] LABS: 1,25 Dihydroxy Vitamin D 31 pg/mL (.); 1,25-Dihydroxy, Vitamin D-2 <10 pg/mL (.); 1,25-Dihydroxy, Vitamin D-3 31 pg/mL (.)
== END 2024-04-08 23:59 | disposition home or self-care (01) ==
LOC: RT 15:08
PROVIDERS: PCP Family Medicine; Visit Provider Nurse Practitioner
DX: M25.572 Pain in left ankle and joints of left foot (principal); M25.472 Effusion, left ankle; R60.9 Edema, unspecified; M79.672 Pain in left foot
CPT/HCPCS: 36415; 73600; 73630; 80053; 82652; 85025; 85378; 85651; 86140; 93971

== ENCOUNTER 2024-04-18 16:50 | Outpatient (CLI) | payer MEDICAID, SELFPAY ==
[2024-04-18 17:45] LABS: Alanine Aminotransferase 24 U/L (12-78); Albumin Level 4.6 g/dl (3.5-5.0); Albumin/Globulin Ratio 1.8 (1.1-1.8); Alkaline Phosphatase 77 U/L (38-126); Anion Gap 12.1 mEq/L (5-15); Aspartate Amino Transferase 33 U/L (17-59); Bilirubin,Total 0.4 mg/dl (0.2-1.3); Blood Urea Nitrogen 11 mg/dl (9-20); Carbon Dioxide 29 mmol/L (22.0-30.0); Chloride 100 mmol/L (98-107); Estimated Glomerular Filt Rate 137 ml/min (>60); GFR (African American) 166 ML/MIN (>60); Globulin 2.5 g/dL (1.3-3.2); Glucose 115 mg/dl (74-100); Potassium 4.1 mmoL/L (3.5-5.1); Sodium 137 mmol/L (136-145); Total Protein,Serum 7.1 g/dl (6.3-8.2)
[2024-04-18 17:51] LABS: C-Reactive Protein 2.7 mg/L (0-4)
[2024-04-18 17:56] LABS: Erythrocyte Sedimentation Rate 9 mm/hr (0-20)
== END 2024-04-18 23:59 | disposition home or self-care (01) ==
LOC: LAB 16:50
PROVIDERS: PCP Family Medicine; Visit Provider Nurse Practitioner
DX: R60.9 Edema, unspecified (principal)
CPT/HCPCS: 80053; 85651; 86140

== ENCOUNTER 2024-05-16 14:25 | Outpatient (CLI) | payer MEDICAID, SELFPAY ==
--- NOTE | 2024-05-16 14:26 | CT_ITS ---
FINAL REPORT TECHNIQUE: CT examination through the foot was performed using axial images through the ankle. Multiplanar reconstructions in the sagittal and coronal plane were performed. This study was performed with techniques to keep radiation doses as low as reasonably achievable (ALARA). Individualized dose reduction techniques using automated exposure control or adjustment of mA and/or kV according to the patient's size were employed. Intravenous contrast was administered. CLINICAL HISTORY: Ankle Pain COMPARISON: None FINDINGS: CT LEFT ANKLE WITH CONTRAST: Postoperative changes are present in the left tibia. There is an intramedullary macy present in the distal tibia, bridging a deformity of the distal shaft of the tibia. There is a mildly comminuted transverse fracture of the lateral malleolus, that has an appearance most consistent with an acute or subacute fracture. There is posterior displacement of the distal fracture fragment up to 3 mm. The ankle mortise is intact. Osteopenia is noted. The medial malleolus is intact. IMPRESSION: Mildly comminuted transverse fracture of the lateral malleolus, that appears acute or subacute. There is posterior displacement up to 3 mm of the distal fracture fragment. Reviewed, Interpreted and Dictated by Armaan Stephenson MD Transcribed by Nancy Olmedo Authenticated and [facility]
--- NOTE | 2024-05-16 14:26 | CT_ITS ---
FINAL REPORT TECHNIQUE: Thin section axial CT images were obtained of the left foot after the administration of IV contrast. Coronal and sagittal reconstructions were obtained and reviewed. This study was performed with techniques to keep radiation doses as low as reasonably achievable, (ALARA). Individualized dose reduction techniques using automated exposure control or adjustment of mA and/or kV according to the patient's size were employed. CLINICAL HISTORY: Foot Pain COMPARISON: None FINDINGS: An intramedullary macy is noted in the distal tibia. There is a comminuted fracture of the lateral malleolus. There is also a nondisplaced, likely subacute, posterior malleoli are fracture. No additional fracture is seen of the foot. The Lisfranc joint is intact. There is no evidence of bony destruction. Multijoint degenerative disease is present. The Achilles tendon is intact. There is a small joint effusion at the tibiotalar joint. Soft tissue edema is seen at the ankle. No loculated fluid collections are identified. There are no enhancing masses. The remaining soft tissues are without acute abnormality. IMPRESSION: No acute osseous abnormality of the foot. Fractures of the lateral malleolus and posterior malleolus as above. Mild soft tissue edema without enhancing fluid collection to suggest abscess. Reviewed, Interpreted and Dictated by Patricia Monae MD Transcribed by Rosita Foster Authenticated and [facility]
[2024-05-16] MEDS: IOPAMIDOL-370 (76%);100ML BOTTLE 75 ML IV (14:52)
[2024-05-16] MEDS: SODIUM CHLORIDE 0.9% 10ML SYR (RAD ONLY) 10 ML IV (14:52)
== END 2024-05-16 23:59 | disposition home or self-care (01) ==
LOC: RAD 14:26
PROVIDERS: PCP Family Medicine; Visit Provider Nurse Practitioner
DX: M25.572 Pain in left ankle and joints of left foot (principal); M25.472 Effusion, left ankle; M79.672 Pain in left foot
CPT/HCPCS: 73701; Q9967

== ENCOUNTER 2024-06-26 14:34 | Outpatient (CLI) | payer MEDICAID, SELFPAY ==
--- NOTE | 2024-06-26 14:38 | XR_ITS ---
FINAL REPORT CLINICAL HISTORY: Left foot fx f/u COMPARISON: 04/08/2024 FINDINGS: LEFT FOOT Three views of the left foot demonstrate an IM macy in the distal tibia with healed fracture deformity. There is no acute fracture. There is a healing mildly displaced, mildly comminuted oblique fracture of the lateral malleolus, well seen only on the lateral view. The visualized joint spaces are normally aligned. The soft tissues are unremarkable. IMPRESSION: Healing lateral malleolar fracture. Reviewed, Interpreted and Dictated by Rafael Dorantes MD Transcribed by Rosita Foster Authenticated and [facility]
== END 2024-06-26 23:59 | disposition home or self-care (01) ==
LOC: RAD 14:35
PROVIDERS: PCP Family Medicine; Visit Provider Nurse Practitioner
DX: M79.672 Pain in left foot (principal); S82.832D Other fracture of upper and lower end of left fibula, subsequent encounter for closed fracture with routine healing
CPT/HCPCS: 73630

== ENCOUNTER 2024-07-16 14:37 | Outpatient (CLI) | payer MEDICAID, SELFPAY ==
--- NOTE | 2024-07-16 14:42 | XR_ITS ---
FINAL REPORT CLINICAL HISTORY: Fall and twisted ankle in April COMPARISON: 04/08/2024 FINDINGS: LEFT ANKLE 3 views of the left ankle were obtained. There is no acute fracture or dislocation. There is an IM macy securing a healed fracture deformity of the distal tibial diaphysis. There is a well-corticated ossific density measuring 5 mm medial to the medial malleolus probably due to an old fracture. There is a healing oblique fracture of the distal fibula. Visualized joint spaces are normally aligned. There is moderate edema about the ankle. IMPRESSION: Moderate edema about the ankle with no acute bony abnormality. Stable postoperative changes as above. Reviewed, Interpreted and Dictated by Rafael Dorantes MD Transcribed by Annmarie Rodriguez Authenticated and . [facility]
== END 2024-07-16 23:59 | disposition home or self-care (01) ==
LOC: RAD 14:39
PROVIDERS: PCP Family Medicine; Visit Provider Nurse Practitioner
DX: M25.572 Pain in left ankle and joints of left foot (principal); M25.472 Effusion, left ankle; S82.62XS Displaced fracture of lateral malleolus of left fibula, sequela
CPT/HCPCS: 73610

== ENCOUNTER 2024-08-21 11:32 | Outpatient (CLI) | payer MEDICAID, SELFPAY ==
--- NOTE | 2024-08-21 11:35 | XR_ITS ---
FINAL REPORT CLINICAL HISTORY: Fracture/ Dislocation, april, no sx tibial nail years ago COMPARISON: 07/16/2024 FINDINGS: Three views of the left ankle show post-ORIF changes of a healed fracture deformity of the distal tibia. There is also a healed distal fibular fracture. Mild degenerative changes are noted. IMPRESSION: Healed fracture deformities as above. Reviewed, Interpreted and Dictated by Armaan Stephenson MD Transcribed by Rosita Foster Authenticated and [facility]
== END 2024-08-21 23:59 | disposition home or self-care (01) ==
LOC: RAD 11:33
PROVIDERS: PCP Family Medicine; Visit Provider Nurse Practitioner
DX: M19.072 Primary osteoarthritis, left ankle and foot (principal); S82.302S Unspecified fracture of lower end of left tibia, sequela; S82.832S Other fracture of upper and lower end of left fibula, sequela
CPT/HCPCS: 73610

== ENCOUNTER 2024-09-17 10:26 | Outpatient (CLI) | payer MEDICAID, SELFPAY ==
--- NOTE | 2024-09-17 10:29 | XR_ITS ---
FINAL REPORT CLINICAL HISTORY: FX F/U COMPARISON: 06/26/2024 FINDINGS: LEFT FOOT Three views of the left foot demonstrate no acute fracture or dislocation. The visualized joint spaces are normally aligned. The soft tissues are unremarkable. IMPRESSION: No acute bony abnormality. Reviewed, Interpreted and Dictated by Rafael Dorantes MD Transcribed by Rosita Foster Authenticated and . [facility]
--- NOTE | 2024-09-17 10:29 | XR_ITS ---
FINAL REPORT CLINICAL HISTORY: Left Fibula Fracture COMPARISON: 08/21/2024 FINDINGS: LEFT ANKLE Three views demonstrate an IM macy securing a healed fracture deformity of the distal tibial diaphysis. There is a transverse acute fracture of the distal fibula at the level of the mortise. There is no evidence of callus formation and appearance is similar to the prior study. A small linear density is seen medial to the medial malleolus and may represent avulsion. The soft tissues are unremarkable. IMPRESSION: No significant change in distal fibular fracture. Reviewed, Interpreted and Dictated by Rafael Dorantes MD Transcribed by Rosita Foster Authenticated and [facility]
--- OUTSIDE RECORDS SUMMARY | 2024-09-17 10:29 | XMS_ITS | Data Portability ---
Author Organization On license of [facility] Address [address] [place] [address] Assessment No assessment recorded. Plan of Treatment Reminders Order Date Submit Date Provider Last Modified By Organization Details Last Modified Time Details Appointments None recorded. Lab None recorded. Referral general surgeon referral 2023 024 SADE Toure Jr, [address], [place], [address], 4 15:39:08 general surgeon referral 2022 023 SDAE Toure Jr, [address], [address], [place], [address], 3 08:33:50 Procedures None recorded. Surgeries None recorded. Imaging None recorded. Medication Orders Bactrim DS 800 mg-160 mg tablet 2023 024 [facility], [facility] [address] [facility], [facility] [address], [place], [address], 4 09:39:43 minocycline 100 mg capsule 2022 023 [facility], [facility] [address] [facility], [facility], [place], [address], 4 09:15:40 cephalexin 500 mg capsule 2022 023 [facility], [address] [facility], [facility], [place], [address], 4 09:15:29 Patient TargetsNo targets recorded. Patient InstructionsNo instructions recorded. Reason for Referral General Surgeon Referral for Sebaceous cyst of skin Referring Physician: Delfino Cruz [facility], Encounter Date: 09/18/2022 General Surgeon Referral for Sebaceous cyst of skin Referring Physician: Delfino Cruz [facility], Encounter Date: 12/13/2023 Problems No Known Problems Procedures Surgical History Date Name Laterality Status Provider Name and Address Organization Details Recorded Time appendectomy completed Marielos Manolo [place] - [facility] 09/18/2022 13:37:58 reduction of open fracture of leg completed Marielos Manolo JACQUE - [facility] 09/18/2022 13:38:21 Imaging Results None recorded. Procedure Notes None recorded. Medical Equipment None Reported. Allergies Allergen ID Allergen Name Allergen Category Reaction Reaction Severity Criticality Documentation Date Start Date Code Code System Note Provider Name and Address Organization Details Recorded Time 241729 morphine medicatio n other moderate high 09/18/2022 7052 RxNorm [place] - [facility] 3 13:35:14 Medications Name Sig Start Date Stop Date Status Note LastModified by Organization Details LastModified Time hydrocodone 5 mg-acetamino phen 325 mg tablet 12/12 completed Not Available Not Available Not Available minocycline 100 mg capsule Take 1 capsule every 12 hours by oral route for 7 days. 12/12 completed Not Available Not Available Not Available sulfamethoxa zole 800 mg-trimethop rim 160 mg tablet Take 1 tablet every 12 hours by oral route for 7 days. active Not Available Not Available No t Available linezolid 600 mg tablet active Not Available Not Available Not Available cephalexin 500 mg capsule Take 1 capsule twice a day by oral route for 7 days. 12/12 completed Not Available Not Available Not Available neomycin-garcía ymyxin-dexam eth 3.5 mg/mL-10,000 unit/mL-0.1% eye drops 12/12 completed Not Available Not Available Not Available Vitals Date Recorded Body height Body mass index (BMI) Body weight Body temperature Heart rate Oxygen saturation Oxygen saturation in Arterial blood by Pulse oximetry Respiratory rate Systolic blood pressure Diastolic blood pressure Provider Name and Address Organization Details Last Updated DateTime 3 170.18 cm 21.5 kg/m2 33987.9 5 g 97.6 [degF] 94 /min 98 % 98 % 18 /min 154 mm[Hg] 82 mm[Hg] Marielos SANTILLAN - [facility] 3 13:33:59 Date Recorded Body height Body mass index (BMI) Body weight Body temperature Heart rate Oxygen saturation Oxygen saturation in Arterial blood by Pulse oximetry Respiratory rate Systolic blood pressure Diastolic blood pressure Provider Name and Address Organization Details Last Updated DateTime 3 170.18 cm 21.5 kg/m2 00044.1 5 g 97.6 [degF] 71 /min 97 % 97 % 18 /min 144 mm[Hg] 80 mm[Hg] Marielos SANTILLAN - [facility] 3 11:34:38 Date Recorded Body temperature Heart rate Body weight Oxygen saturation Oxygen saturation in Arterial blood by Pulse oximetry Respiratory rate Systolic blood pressure Diastolic blood pressure Provider Name and Address Organization Details Last Updated DateTime 4 98.1 [degF] 78 /min 08088.1 9 g 98 % 98 % 18 /min 128 mm[Hg] 82 mm[Hg] Marielos SANTILLAN - [facility] 4 09:22:33 Social History Question Answer Notes LastModified by Organizat ion Details LastModified Time Tobacco Smoking Status Never Smoker JACQUE Mathew [facility] 09/18/2022 13:36:45 Do You Have An Advance Directive? No Information n ot available 09/18/2022 Are You Blind Or Do You Have Difficulty Seeing? No Information n ot available 09/18/2022 What Is Your Level Of Caffeine Consumption? Moderate Information not available 09/18/2022 In The 14 Days Before Symptom Onset, Have You Had Close Contact With A Laboratory-confirm ed COVID-19 While That Case Was Ill? No Information n ot available 09/18/2022 In The 14 Days Before Symptom Onset, Have You Had Close Contact With A Person Who Is Under Investigation For COVID-19 While That Person Was Ill? No Information not available 09/18/2022 Have You Been To An Area Known To Be High Risk For COVID-19? No Information not available 09/18/2022 Are You Deaf Or Do You Have Serious Difficulty Hearing? No Information not available 09/18/2022 What Type Of Diet Are You Following? REGULAR Information n ot available 09/18/2022 Have You Processed Blood Or Body Fluids From An Ebola Virus Disease Patient Without Appropriate PPE? No Information not available 09/18/2022 Do You Reside In Or Have You Traveled To An Area Where Ebola Virus Transmission Is Active? No Information not available 09/18/2022 What Is The Highest Grade Or Level Of School You Have Completed Or The Highest Degree You Have Received? DQ04470-8 Information not available 09/18/2022 Have There Been Any Changes To Your Family Or Social Situation? No Information no t available 09/18/2022 What Is The Fluoride Status Of Your Home? Fluoridated Information not available 09/18/2022 Have You Recently Or Are You Planning To Travel To An Area With Zika Virus? No Information not available 09/18/2022 Do You Have A Medical Power Of Tornado Chaser? No Information not available 09/18/2022 What Was The Date Of Your Most Recent Tobacco Screening? 12/13/2023 Information not available 12/13/2023 What Is Your Relationship Status? Single Information not available 09/18/2022 Do You Have Smoke And Carbon Monoxide Detectors In Your Home? Yes Information not available 09/18/2022 Are You Passively Exposed To Smoke? No Information no t available 09/18/2022 Has Tobacco Cessation Counseling Been Provided? No Information not available 09/18/2022 Do You Have Difficulty Walking Or Climbing Stairs? No Information not available 09/18/2022 How Many Years Have You Used Smokeless Tobacco? 40 Information n ot available 09/18/2022 Sex: Male Functional Status Question Answer Note LastModified by Organizat ion Details LastModified Time How many times per week do you consume alcohol? 3-4 times per week Information not available 09/18/2022 Do you or have you ever used smokeless tobacco? Current snuff user Information not available 09/18/2022 Are you currently employed? Yes Information not available 09/18/2022 Do you have transportation difficulties? No Information not available 09/18/2022 Are you able to care for yourself? Yes Information n ot available 09/18/2022 Do you have difficulty dressing or bathing? No Information not available 09/18/2022 What is your exercise level? Moderate Information not available 09/18/2022 Do you use any illicit or recreational drugs? No Information not available 09/18/2022 Do you or have you ever used any other forms of tobacco or nicotine? Yes Information not available 09/18/2022 What is your level of alcohol consumption? Occasional Information not available 09/18/2022 Are you able to walk? YESWOREST Information not available 09/18/2022 Do you have difficulty doing errands alone? No Information not available 09/18/2022 What is your occupation? self employed Information not available 09/18/2022 Mental Status Question Answer Note LastModified by Organization D etails LastModified Time Do you have difficulty concentrating, remembering or making decisions? No Information no t available 09/18/2022 Family History Nothing Reported. Medical History Condition Response Pancreatitis N Coronary Artery Disease N Other N Gout N Atrial Fibrillation N congenital heart disease N Blood Diseases N Kidney Stones N Hyperthyroidism N Blood Transfusion N Rheumatoid arthritis N Erectile Dysfunction N amputation N Colonoscopy N Skin Lesions N COPD N Depression N Pneumonia N Incontinence N Murmur N Edema N Alzheimer's Disease N Migraine Headaches N Tobacco Abuse N Anxiety Disorder N Hemorrhoids N Muscle, Joint, or Bone Problems N Obesity N Vision or Eye Problems N Arthritis N Restless Leg Syndrome N Polyps N Infertility N Mental Disorder N Carpal Tunnel N Acid Reflux (GERD) N Cancer N Varicosities N Stroke N Tendonitis N Crohn's Disease N Hypercholesterolemia N Skin Cancer N Headaches N Fibromyalgia N Anal Fissure N Irritable Bowel Syndrome N Kidney Disease N Heart Problems N Ear or Hearing Problems N Hospitalizations N Gallstones N Kidney or Bladder Problems N Goiter N Acne N Skin Problems N Eating Disorder N [place]obedo's Esophagus N Hypertriglyceridemia N MRSA exposure N Constipation N Embolism N Vitamin B12 Deficiency N Deviated Septum N Tuberculosis N AIDS/HIV N Myocardial Infarction N Asthma N Mitral Valve Disorders N Vertigo N Hepatitis N Thyroid Cancer N Neuropathy N Pulmonary Embolism N History of DVT N Herniated Disc N Chronic Ear Infections N Chicken Pox N Autism Spectrum Disorder (ASD) N Von Willebrands Disease N Thrombophilias N Breast Cancer N Hernia N Plantar Fasciitis N Hospital Admission Other Than N Lung Disease N Hypothyroidism N Defects or Inherited Disease N Developmental or Behavioral Disorders N Breast Problem N Difficulty Swallowing N Ovarian Cyst N Anesthesia Complications N Testosterone Deficiency N Meniere's disease N Head Injury/Concussion N Interstitial Cystitis N Congenital Anomalies N Hypoglycemia N Blood clot N Vitamin D Deficiency N Cellulitis N Endometriosis N Fracture N Bladder or Kidney Problems N Colorectal Cancer N Liver Disease N Panic Disorder N Schizophrenia N Concussion N Spina Bifida N Allergies/Hayfever N Osteoarthritis N Parkinson's Disease N Disc Protrusion N STI N Esophagitis N Angina N Thyroid Problems N GI Problems N ADD/ADHD N Anemia N Multiple Sclerosis N Abnormal PAP N Lumbago N Mental Illness N Psychiatric Illness N Diabetes N Ovarian Cancer N Bedwetting N Degenerative Disc Disease N Seizures/Epilepsy N Congestive Heart Failure (CHF) N Hyperlipidemia N Syncope N Insomnia N Eczema N Abuse/Domestic Violence N Attention Deficient Disorder N Diverticulitis N Dementia N Ulcerative colitis N Cerebrovascular Disease N Depression N Guillain-[place] N Sleep Apnea N Aneurysm N Bronchitis N Heart Disease N Suicidal Ideation N Pre-Eclampsia N Hypertension N Osteoporosis N Immunizations Vaccine Type Date Status Note Provider Nam e and Address Organization Details Recorded Time Influenza, split virus, trivalent, PF 12/08/2016 completed Marielos corona [place] - [facility] 09/18/2022 13:34:19 Hep A, adult 03/08/2017 completed JACQUE Mathew - [facility] 09/18/2022 13:34:19 Tdap 08/16/2023 tristin corona [facility] 12/13/2023 09:15:18 Past Encounters Encounter ID Performer Location Encounter Start Date Encounter Closed Date Diagnosis/Indication Diagnosis SNOMED-CT Code Diagnosis ICD10 Code Diagnosis Note [id number] Delfino Cruz APRN [address] [address] 09/18/2022 13:06:35 09/18/2022 13:53:48 Sebaceous cyst of skin 264387703 L72.3 [id number] Delfino Cruz APRN [address] [address] 09/25/2022 11:22:51 09/25/2022 11:52:28 Abscess of skin and/or subcutaneous tissue 35322036 L02.91 follow up with surgery on [id number] Delfino Cruz APRN [facility] [address] [place] [address] 12/13/2023 09:04:04 12/13/2023 09:32:27 Sebaceous cyst of skin 554266708 L72.3 antibiotic ssurgery referralif worsen return Health Concerns Section Related Observation LastModified by Organization Detai ls LastModified Time None Recorded Concern Status LastModified by Organization Details LastModified Time None Recorded Advance Directives Directive N: Payers Insurance Date Sequence Insurance Name Policy Number Policy Phillips Covered Member ID Phillips Member ID Guarantor Name 02/06/2024 1 [employer] [place] Ezio Sun [id number] Ezio 02/07/2024 [place] [facility] WRAP BILLING (MEDICAID) Ezio Sun [id number] Ezio Sun Notes Date Note Type Note Provider Name and Address Organization Details Recorded Time 09/18/2022 text/html 57 yr old male with a red cyst area to the back of the head. He says it has been there for 15 years but just started becoming painful and swollen in the last few weeks. Delfino Cruz APRN [address], [place], [address], [place] - [facility] 09/18/2022 13:55:26 09/25/2022 text/html 57 yr old male presents with a cyst to the back of the head. States he has an appointment for Dr. Toure to work on the area. He said he finished his antibiotic and it is still sore and festered/draining. Delfino Cruz APRN [address], [place], [address], [place] - [facility] 09/25/2022 11:57:12 12/13/2023 text/html 58 yr old male presents for a swollen area/cyst to right clavicle region. He reports the area started as a small bump and has been there for 40 yrs, but now its gotten bigger,red and tender Delfino Cruz, RECEIVING SPECIALIST [address], [place], [address], [place] - [facility] 12/13/2023 09:37:39
== END 2024-09-17 23:59 | disposition home or self-care (01) ==
LOC: RAD 10:27
PROVIDERS: PCP Family Medicine; Visit Provider Nurse Practitioner
DX: S82.62XA Displaced fracture of lateral malleolus of left fibula, initial encounter for closed fracture (principal); L03.116 Cellulitis of left lower limb
CPT/HCPCS: 73610; 73630

== ENCOUNTER 2024-10-28 10:46 | Outpatient (CLI) | payer MEDICAID, SELFPAY ==
--- NOTE | 2024-10-28 10:48 | XR_ITS ---
FINAL REPORT CLINICAL HISTORY: Left ankle FX f/u COMPARISON: 09/17/2024 FINDINGS: AP, oblique, and lateral views of the left ankle were obtained. The tibial macy noted on the prior examination is once again noted. There is no significant change in the appearance of the previously described lateral malleolar fracture. No new fracture is identified. The ankle mortise is intact. 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 IMPRESSION: No significant change in the appearance of the previously described lateral malleolar fracture, seen on the prior exam of 09/17/2024. Reviewed, Interpreted and Dictated by Patricia Monae MD Transcribed by Nancy Olmedo Authenticated and [facility]
== END 2024-10-28 23:59 | disposition home or self-care (01) ==
LOC: RAD 10:47
PROVIDERS: PCP Family Medicine; Visit Provider Nurse Practitioner
DX: S82.62XA Displaced fracture of lateral malleolus of left fibula, initial encounter for closed fracture (principal)
CPT/HCPCS: 73610

== ENCOUNTER 2024-11-01 13:17 | Emergency (ER) | payer MEDICAID, SELFPAY ==
[2024-11-01 13:25] VITALS: BP 133/91; PULSE 108; RESP 20; TEMP 37.1; O2SAT 98; BMI 23.5
[2024-11-01 13:30] VITALS: BP 133/91; PULSE 110; RESP 16; O2SAT 98
--- NOTE | 2024-11-01 13:40 | XR_ITS ---
PROCEDURE INFORMATION: Exam: XR Chest Exam date and time: 11/01/2024 1:44 PM Age: 59 years old Clinical indication: Injury or trauma; Other: Fall, right shoulder deformity/pain TECHNIQUE: Imaging protocol: Radiologic exam of the chest. Views: 1 view. COMPARISON: CT CHEST WO CON 01/14/2024 12:33 PM FINDINGS: Lungs: Unremarkable. No consolidation. Pleural spaces: Unremarkable. No pleural effusion. No pneumothorax. Heart/Mediastinum: Unremarkable. No cardiomegaly. Bones/joints: Displaced spiral oblique fracture in the proximal right humeral shaft.. Stable deformity in the left scapula IMPRESSION: Displaced spiral oblique fracture in the proximal right humeral shaft.
--- NOTE | 2024-11-01 13:40 | XR_ITS ---
PROCEDURE INFORMATION: Exam: XR Right Shoulder Exam date and time: 11/01/2024 1:44 PM Age: 59 years old Clinical indication: Injury or trauma; Fall; Work related; Blunt trauma (contusions or hematomas); Shoulder; Right; Additional info: Fall, right shoulder deformity/pain TECHNIQUE: Imaging protocol: Radiologic exam of the right shoulder. Views: 1 view. COMPARISON: CR XR SHOULDER RT MIN 2V 11/01/2024 1:44 PM FINDINGS: Bones/joints: Displaced spiral oblique fracture in the proximal humeral shaft.. The glenohumeral joint is aligned. The acromioclavicular joint is aligned Soft tissues: Soft tissue swelling of the shoulder. IMPRESSION: 1. Displaced spiral oblique fracture in the proximal humeral shaft.. 2. The glenohumeral joint is aligned.
--- NOTE | 2024-11-01 13:40 | XR_ITS ---
PROCEDURE INFORMATION: Exam: XR Right Humerus Exam date and time: 11/01/2024 1:44 PM Age: 59 years old Clinical indication: Injury or trauma; Fall; Blunt trauma (contusions or hematomas); Shoulder; Right; Additional info: Fall, right shoulder deformity/pain TECHNIQUE: Imaging protocol: Radiologic exam of the right humerus. Views: 2 or more views. COMPARISON: CR XR HUMERUS RT 11/01/2024 1:44 PM FINDINGS: Bones/joints: Displaced spiral oblique fracture in the proximal humeral shaft. Degenerative changes in the glenohumeral joint and acromioclavicular joint . Glenohumeral joint is aligned Soft tissues: Soft tissue swelling of the shoulder IMPRESSION: Displaced spiral oblique fracture in the proximal humeral shaft.
--- NOTE | 2024-11-01 13:42 | HMH.EDGENADL ---
Discharge Plan Disposition Patient Disposition: Home, Self-Care Prescriptions Prescriptions: New oxycodone 5 mg tablet 5 mg PO Q6H PRN (Reason: pain) Qty: 12 0RF No Action ciclopirox 8 % solution 1 applic topical DAILY 90 Days Qty: 6.6 3RF Rx Instructions: apply over previous coat; remove with alcohol every 7 days and file down nail aspirin [Adult Low Dose Aspirin] 81 mg tablet,delayed release (DR/EC) 81 mg PO DAILY Referrals Follow up/Referrals: Andree Mullins APRN [Primary Care Provider, Family Practice] - See instructions Jareth Carbone DO [Staff Physician, Orthopedics] - See instructions Activity Restrictions/Add. Instructions Additional Instructions/Restrictions: You were found to have a fracture of your right humerus. Wear the cuff and collar at all times until you are able to follow-up with Dr. Carbone, our orthopedic surgeon. I encourage you to call his clinic early next week to schedule follow-up appointment. You are being prescribed oxycodone for severe pain. Take this as prescribed. You can also take Tylenol and ibuprofen for mild to moderate pain. If you develop any new or worsening symptoms, or if you become concerned for your health for any reason, return to the emergency department for evaluation. Clinical Impressions Clinical Impression: Closed fracture of proximal end of right humerus Print Language Print Language: Macedonian Discharge ED Provider: Oliverio Alves Adult HPI General Chief complaint: Extremity Injury, Upper Stated complaint: Possible Dislocated R Shoulder Time Seen by Provider: 11/01/24 13:37 Mode of Arrival: Ambulatory Source of Information: Patient Description of Symptoms (Recalled from ER Triage Doc. by RN): r arm/shoulder pain. fell off a ladder yesterday about 3 steps History of Present Illness HPI narrative: Ezio Sun is an otherwise healthy male who presents to the emergency department for complaints of right shoulder/arm pain after a fall. Patient states that yesterday he was 2 to 3 feet up on a ladder when he fell off, landing on his right arm. He denies any head trauma or loss of consciousness. He states that he has had pain in his right shoulder area ever since. He believes his shoulder may be dislocated. He denies any numbness or tingling in his hands. He denies any pain at the elbow. Related Data Home Medications ?Medication ?Instructions ?Recorded ?Confirmed aspirin 81 mg tablet,delayed 81 mg PO DAILY 05/29/24 10/28/24 release (Adult Low Dose Aspirin) Previous Rx's ?Medication ?Instructions ?Recorded ciclopirox 8 % topical solution 1 applic topical DAILY toenail 10/28/24 fungus 3 months #6.6 mL oxycodone 5 mg tablet 5 mg PO Q6H PRN pain #12 tabs 11/01/24 Allergies Allergy/AdvReac Type Severity Reaction Status Date / Time morphine (MORPHINE) Allergy Mild Verified 10/28/24 11:11 [facility] Disclaimer: The information contained in this section may have been updated after the patient was seen, as this information can be updated by other users. Medical History Retained orthopedic hardware 04/02/24- LT ankle xrays 3V- There is an old, healed distal left tibia fracture with medullary macy present. There is an oblique non-displaced fracture through the distal left fibula. The tibiotalar joint space is normal. The talus and calcaneus are intact. Soft tissues: Lateral left ankle soft tissue swelling. Deviated septum Patient was educated that if he was having issues breathing that he could consider having his septum repaired Hearing loss Patient educated that if he has hearing loss, he could possibly qualify for hearing aides Tinnitus No significant past medical history Surgical History History of appendectomy History of surgery on lower extremity Family History Other Family history of heart disease Social History Smoking Status: Current every day smoker tobacco type: smokeless tobacco alcohol intake: never substance use type: denies use current occupational status: employed and other Travel in the last 8 weeks?: None Have you lived/traveled outside US in past 30 days?: No Contact w/someone who lives/traveled outside US past 30 days?: No Exposure to someone with infectious disease in past 14 days?: No Do you have a fever (greater than 100.4 F or 38 C)?: No Have you tested positive for COVID-19?: No Exposed to someone with COVID-19 in past 14 days?: No Do you have a sore throat?: No Do you have a cough?: No Do you have any weakness?: No Do you have any diarrhea?: No Are you experiencing any unusual bleeding?: No Do you have any muscle aches/pain?: No Do you have any abdominal pain?: No Are you experiencing loss of taste or smell?: No Other Medical History Have you received the Flu Vaccine for this season: No Have you received the Pneumonia Vaccine: Yes ROS Obtained: Yes Systems reviewed as appropriate & no additional complaints except as documented Physical Exam General General appearance: alert and in no apparent distress Head Head exam: atraumatic Eye Eye exam: Present normal appearance ENT ENT exam: Present normal external ear exam Neck Neck exam: Present full ROM Chest Chest inspection: Present symmetric chest wall rise Respiratory Respiratory exam: Present normal lung sounds bilaterally; Absent respiratory distress Cardiovascular Cardiovascular exam: Present regular rate and normal rhythm Abdominal Exam Abdominal exam: Present soft; Absent distention, tenderness or guarding exam: Present deferred Extremities Exam Extremities exam: Present normal inspection and other (Right upper extremity: Tenderness and ecchymosis of the proximal humerus. Tenderness over the shoulder joint. Limited range of motion at the shoulder secondary to pain. Full range of motion at the elbow. 2+ radial pulses. Sensation and medical records custodian strength intact to the hand.) Back Exam Back exam: Present normal inspection Neurological Exam Neurological exam: Present alert and oriented X3 Psychiatric Psychiatric exam: Present normal affect Skin Skin exam: Present warm and dry Medical Decision Making Medical Records Screening: Per USPSTF and CDC recommendations, given the prevalence of disease in our region, it is our hospital?s policy to screen for HIV and viral Hepatitis for all patients aged 18 and over and those with ongoing risk factors. Toy Inquiry Pt receiving controlled substance: Yes Toy was queried for this patient: Yes Risks and benefits of using a controlled substance: were discussed with pt by me Vital Signs: 11/01/24 13:25 11/01/24 13:30 11/01/24 14:00 Temperature 98.8 F Temperature Source Oral Pulse Rate 110 H 102 H Pulse Rate [Right] 108 H Respiratory Rate 20 16 18 Blood Pressure 133/91 H 138/90 Blood Pressure [Left Arm] 133/91 H Blood Pressure Mean 99 104 Blood Pressure Mean [Left Arm] 105 02 Sat by Pulse Oximetry 98 98 99 Oxygen Delivery Method Room Air 11/01/24 15:16 Temperature 98.7 F Temperature Source Pulse Rate 102 H Pulse Rate [Right] Respiratory Rate 18 Blood Pressure 138/90 Blood Pressure [Left Arm] Blood Pressure Mean Blood Pressure Mean [Left Arm] 02 Sat by Pulse Oximetry Oxygen Delivery Method Room Air Lab Data Lab Results 11/01/24 13:30: HCV Ab JACK w/Rflx PCR Qn Negative, HIV Ag/Ab Combo Qual Negative Orders (Tests/Meds): ED MEDICATIONS Discontinued Medications Generic Name Dose Route Start Last Admin Trade Name Rehan PRN Reason Stop Dose Admin Fentanyl Citrate 50 mcg 11/01/24 13:40 11/01/24 13:49 Fentanyl 100mcg/2ml Vial IV 11/01/24 13:41 50 mcg ONCE ONE Administration ORDERS Category Date Time Status CXR --portable [XR chest portable] Stat Exams 11/01/24 13:40 Completed Humerus XR right [XR humerus RT] Stat Exams 11/01/24 13:40 Completed XR shoulder RT 1V Stat Exams 11/01/24 13:40 Completed HIV Combo Stat Lab 11/01/24 13:30 Completed Hepatitis C Ab Qual. W/ RFX Stat Lab 11/01/24 13:30 Completed Medical Decision Narrative: Ezio Sun is an otherwise healthy male who presents to the emergency department for complaints of right shoulder/arm pain after a fall. Patient states that yesterday he was 2 to 3 feet up on a ladder when he fell off, landing on his right arm. He denies any head trauma or loss of consciousness. He states that he has had pain in his right shoulder area ever since. He believes his shoulder may be dislocated. He denies any numbness or tingling in his hands. He denies any pain at the elbow.On arrival, patient is hemodynamically stable, no acute respiratory distress, breathing comfortably on room air. Physical exam, stated above, revealed an overall well-appearing male in no acute distress. He has tenderness over the proximal right humerus and shoulder with bruising this area. No clavicle tenderness. No tenderness over the anterior chest wall. Breath sounds present bilaterally. Cardiopulmonary exam is otherwise unremarkable. differential diagnosis includes, but is not limited to: Humerus fracture, shoulder fracture /dislocation, AC joint separation,clavicle fracture, pneumothorax, rib fracture, among others. The most morbid conditions were considered and workup was based on these. Workup in the emergency room included: Right humerus x-rays, right shoulder x-rays, chest x-ray. Patient was given 50 mcg of fentanyl for his symptoms. X-ray imaging was interpreted by me personally. Patient has a displaced proximal right humerus fracture. No shoulder dislocation. No AC joint separation. No clavicle fracture. No pneumothorax or apparent rib fractures. See radiology reports for details. Given these findings, it is felt that patient is appropriate for discharge at this time and was placed in a cuff and collar. He is given referral to Dr. Carbone with orthopedic surgery team and was instructed to call them early next week to set up an appointment. He will be given prescription for oxycodone for severe pain. He was also instructed to take Tylenol and ibuprofen to help with pain. Return precautions were given. All questions were answered. He demonstrated understanding and was in agreement this plan. He was then discharged from the emergency department in stable condition. Critical Care Critical Care Time Critical Care Time: No
[2024-11-01] MEDS: FENTANYL 100MCG/2ML VIAL 50 MCG IV (13:49)
[2024-11-01 14:00] VITALS: BP 138/90; PULSE 102; RESP 18; O2SAT 99
[2024-11-01 14:45] LABS: Hepatitis C Ab Qual. W/ RFX NEGATIVE (Negative)
[2024-11-01 15:16] VITALS: BP 138/90; PULSE 102; RESP 18; TEMP 37.1; O2SAT 99
== END 2024-11-01 15:17 | disposition home or self-care (01) ==
PROVIDERS: Emergency Provider Student in an Organized Health Care Education/Training Program; PCP Family Medicine
DX: S42.201A Unspecified fracture of upper end of right humerus, initial encounter for closed fracture (principal); W11.XXXA Fall on and from ladder, initial encounter; F17.210 Nicotine dependence, cigarettes, uncomplicated
CPT/HCPCS: 71045; 73020; 73060; 86803; 87389; 96374; 99284; J3010

== ENCOUNTER 2024-11-05 14:04 | Outpatient (CLI) | payer MEDICAID, SELFPAY ==
[2024-11-05 14:38] VITALS: BMI 23.5
--- NOTE | 2024-11-05 14:39 | XR_ITS ---
FINAL REPORT TECHNIQUE: Chest PA & Lateral CLINICAL HISTORY: pre op surgery, sob on exertion COMPARISON: 11/01/2024 FINDINGS: 2 views of the chest were performed. The heart size is normal. The mediastinum is within normal limits. There is no acute cardiopulmonary process. There are no pleural effusions. There is no pneumothorax. The bony thorax appears intact. IMPRESSION: No acute cardiopulmonary process. Reviewed, Interpreted and Dictated by Rafael Dorantes MD Transcribed by Rosita Foster Authenticated and [facility][1]
--- NOTE | 2024-11-05 15:11 | ECG_ITS ---
APPROVED REPORT Exam: Resting ECG HR:82 bpm ECG Measurements Heart Rate 82 AXES VT 172 P 39 QRSd 104 QRS -33 QT 373 T -3 QTc 411 Conclusion SINUS RHYTHM LEFT AXIS DEVIATION [QRS AXIS < -30] PATTERN CONSISTENT WITH PULMONARY DISEASE MINIMAL VOLTAGE CRITERIA FOR LVH, CONSIDER NORMAL VARIANT [MEETS CRITERIA IN ONE OF: R(aVL), S(V1), R(V5), R(V5/V6)+S(V1)] ABNORMAL ECG UNCONFIRMED REPORT Electronically signed by : Obdulio Orourke MD 11/06/2024 08:59:40
[2024-11-05 15:36] LABS: Hematocrit 37.9 % (42.0-52.0); Hemoglobin 13.1 g/dL (14.1-18.0); Immature Granulocytes % 0.8 %; Mean Corpuscular HGB Conc 34.6 g/dL (31.8-35.4); Mean Corpuscular Hemoglobin 31.3 pg (27.0-31.2); Mean Corpuscular Volume 90.5 fl (80-94); Nucleated Red Blood Cells % 0 %; Platelet Count 201 K/mm3 (142-424); Red Blood Count 4.19 M/mm3 (4.60-6.20); Red Cell Distribution Width-SD 39.8 fL; White Blood Count 5.1 K/mm3 (4.8-10.8)
[2024-11-05 15:49] LABS: Chloride 91 mmol/L (98-107); Potassium 3.8 mmoL/L (3.5-5.1); Sodium 125 mmol/L (136-145)
[2024-11-05 15:52] LABS: Anion Gap 11.8 mEq/L (5-15); Blood Urea Nitrogen 5 mg/dl (9-20); Calcium 8.5 mg/dl (8.4-10.2); Carbon Dioxide 26 mmol/L (22.0-30.0); Creatinine Clearance Estimated 75 mL/min (50-200); Creatinine,Serum 0.60 mg/dl (0.66-1.25); Estimated Glomerular Filt Rate 137 ml/min (>60); GFR (African American) 166 ML/MIN (>60); Glucose 84 mg/dl (74-100)
== END 2024-11-05 23:59 | disposition home or self-care (01) ==
LOC: PREOP 14:05
PROVIDERS: PCP Family Medicine; Visit Provider Orthopaedic Surgery
DX: Z01.810 Encounter for preprocedural cardiovascular examination (principal); Z01.811 Encounter for preprocedural respiratory examination; Z01.812 Encounter for preprocedural laboratory examination; R94.31 Abnormal electrocardiogram [ECG] [EKG]; R06.02 Shortness of breath
CPT/HCPCS: 71046; 80048; 85025; 93005

== ENCOUNTER 2024-11-12 07:31 | Day surgery (SDC) | payer MEDICAID, SELFPAY ==
[2024-11-06 08:22] VITALS: BMI 23.5
[2024-11-12] VITALS (9 sets, daily range): BP systolic 115–161; BP diastolic 73–98; PULSE 84–103; RESP 16–22; TEMP 36.2–38; O2SAT 94–97
[2024-11-12] MEDS: LACTATED RINGERS 1000ML 1,000 ML 100 ML IV (08:25)
[2024-11-12 08:38] LABS: Chloride 102 mmol/L (98-107); Sodium 136 mmol/L (136-145)
[2024-11-12 08:39] LABS: Potassium 3.9 mmoL/L (3.5-5.1)
[2024-11-12 08:42] LABS: Anion Gap 10.9 mEq/L (5-15); Blood Urea Nitrogen 7 mg/dl (9-20); Calcium 9.1 mg/dl (8.4-10.2); Carbon Dioxide 27 mmol/L (22.0-30.0); Creatinine Clearance Estimated 75 mL/min (50-200); Creatinine,Serum 0.40 mg/dl (0.66-1.25); Estimated Glomerular Filt Rate 219 ml/min (>60); GFR (African American) 265 ML/MIN (>60); Glucose 79 mg/dl (74-100)
--- NOTE | 2024-11-12 08:48 | P.PNANES_ITS ---
[facility] Disclaimer: The information contained in this section may have been updated after the patient was seen, as this information can be updated by other users. Medical History HTN (hypertension) Retained orthopedic hardware Deviated septum Hearing loss Tinnitus No significant past medical history Surgical History History of appendectomy History of surgery on lower extremity Family History Other Family history of heart disease Social History Smoking Status: Former smoker tobacco type: smokeless tobacco alcohol intake: current alcohol intake frequency: holidays/special occasions only substance use type: denies use current occupational status: employed and other Travel in the last 8 weeks?: None Have you lived/traveled outside US in past 30 days?: No Contact w/someone who lives/traveled outside US past 30 days?: No Exposure to someone with infectious disease in past 14 days?: No Do you have a fever (greater than 100.4 F or 38 C)?: No Have you tested positive for COVID-19?: No Exposed to someone with COVID-19 in past 14 days?: No Do you have a sore throat?: No Do you have a cough?: No Do you have any weakness?: No Do you have any diarrhea?: No Are you experiencing any unusual bleeding?: No Do you have any muscle aches/pain?: No Do you have any abdominal pain?: No Are you experiencing loss of taste or smell?: No [facility] Anesthesia Checklist Patient Identification Patient Identification: Arm Band and Verbal (Name & ) Structural Data Admitted From: Home Planned Operative Procedure/s: ORIF Right shoulder Verified Documents: Surgical Consent NPO Status Verified Time NPO: 00:00 Additional verifications Anesthesia Reactions: No Hx Blood Transfusions: No Blood Transfusion Reaction: No Airway Assessment Mallampati Score:: Class II C-Spine Mobility Assessed: Yes TMJ Mobility Assessed: Yes Dentition: Good Dentition Neurological Assessment Level of Consciousness: Awake, Alert and Appropriate Hx Seizures: No Numbness or tingling in extremities: No Anesthesia Plan Anesthesia Risk discussed: Yes Anesthesia Plan: Verified ASA Class: II Anesthesia Type: General w/block
--- NOTE | 2024-11-12 14:54 | XR_ITS ---
FINAL REPORT CLINICAL HISTORY: ORIF RIGHT HUMERUS FX. PINNING 1.48 min 10.96 mGy COMPARISON: None FINDINGS: FLUOROSCOPY LESS THAN 1 HOUR HISTORY: Intraoperative fluoroscopy for pinning of a proximal right humeral fracture FINDINGS: Fluoroscopic guidance was provided for ORIF proximal right humeral fracture. 3 spot films were obtained. 1.48 minutes of fluoroscopy time were used, with a dosage of 10.96 mGy. IMPRESSION: As above. Reviewed, Interpreted and Dictated by Patricia Monae MD Transcribed by Nancy Olmedo Authenticated and [facility]
--- NOTE | 2024-11-12 15:18 | P.OP_ITS ---
Date of procedure: 11/12/24 Pre-op Diagnosis:: Right proximal humerus fracture Post-op Diagnosis:: Same Procedure performed:: Open reduction internal fixation right proximal humerus with K wire fixation Surgeon:: Jareth Carbone DO Operator Automated Process(s):: Jair PARKER [employer]ER [employer]:: Beatris Fontenot Anesthesia: GETA Estimated blood loss (mL): 50 Operative findings:: Proximal humerus fracture distal to the calcar short oblique fracture Operative note:: Patient identified preoperatively. Right shoulder marked with yes my initials. Transferred operative suite after undergoing a peripheral block with anesthesia. Placed upon the operating bed general anesthesia administered airway secured. Then placed in the modified beachchair position with well-padded bony prominences right shoulder was then prepped and draped normal sterile fashion was prepped and draped final operative timeout performed to identify proper patient procedure and extremity. Everyone involved the case agree. Is no counter indication to beginning. Did receive preoperative antibiotics. Marking pen was used to make planned deltopectoral incision x-ray was brought into identify the fracture nature this is a short oblique fracture of the proximal humerus distal to the calcar. Deltopectoral approach was utilized after close reduction maneuver with traction internal/external rotation did not give adequate reduction of the proximal humerus. Deltopectoral approach was utilized and the interval was utilized for dissection down to the fracture site within the fracture site there was severe amount of soft tissue incarceration into the fracture site this was carefully removed with a Pierce elevator to get bony bone to bone reduction this is a short oblique fracture 1 that would not allow for lag screw placement given the configuration of the fracture fracture for a stable lag screw fixation the nature of the fracture was such that it would be a candidate for K wire fixation and also I open the proximal humeral plating system. Short window dissection was taken down to the fracture site was held with a [id number] clamp and configuration and reduction of the fracture was evaluated on the x-ray. Once the fracture site was cleaned and bone to bone apposition was obtained decision was made for K wire fixation of the humeral fracture given the short oblique nature of the fracture. Subsequently 3 K wires were placed under direct visualization on the x-ray bicortically for fixation of the fracture. This allowed the proximal and distal aspects of the fracture to moved together x-rays were taken AP 2 oblique x-rays to reveal adequate depth of the K wires K wires were 2 mm K wires. They were bent and cut outside the skin the Jurgan balls were to small to fit the 2.0 mm K wires. Therefore single dose of cement was matching and small cement balls were made in place of the Jurgan balls for the tips of the K wire this was done to prevent any migration but also evaluate depth of the K wires clinically. Irrigation of the fracture site was performed deep layers closed with 0 Vicryl subcutaneous with 2-0 Vicryl 4-0 Monocryl and the skin with Dermabond and Prineo dressing. K wires were protected with a Adaptic over the skin 4 x 4's were placed in ABD and a well-padded dressing was placed in the shoulder and over the lateral K wires. Once closure was complete and dressings were placed patient placed in a sling. Patient waken anesthesia taken recovery stable condition. Condition: stable Disposition: PACU Complications:: None apparent
--- NOTE | 2024-11-12 15:42 | EXP.ANES.I ---
[facility] Anesthesia Record Part I Anesthesia Record I Intake, IV Amount: 1,400 Hydration: Adequate Estimated blood loss (mL): 50 Urine output (mL): 0 Blood Products used (#): none Blood Pressure: 136/98 SaO2: 95 Pulse Rate: 103 Airway Patency: Patent Respiratory Rate: 16 Temperature: 97.7 F Patient is:: Drowsy and Stable Stable to PACU at:: 15:40
--- NOTE | 2024-11-13 08:49 | P.PNANES_ITS ---
[facility] Anesthesia Record Part II Anesthesia Record Part II Discharge Time: 16:10 Destination: Surgical Day Care (OP Surgery) PACU nurse assessment reviewed?: Yes Patient Condition:: Good Anesthesia Complications:: None Swallowing reflex intact?: Yes Airway Patency: Patent Cyanosis?: No Blood Pressure: 115/83 SaO2: 94 Respiratory Rate: 22 Pulse Rate: 93 Temperature: 97.5 F Mental Status: Alert & Oriented Pain level:: 0 Nausea and/or vomitting:: None Intake, IV Amount: 0 Hydration: Adequate
[2024-11-13 08:50] VITALS: BP 115/83; PULSE 93; RESP 22; TEMP 36.4; O2SAT 94
== END 2024-11-12 17:20 | disposition home or self-care (01) ==
PROVIDERS: PCP Family Medicine; Visit Provider Orthopaedic Surgery
PROC: (CPT 23615; principal; 2024-11-12 09:15)
DX: S42.291A Other displaced fracture of upper end of right humerus, initial encounter for closed fracture (principal); W11.XXXA Fall on and from ladder, initial encounter; Y93.89 Activity, other specified; Y92.89 Other specified places as the place of occurrence of the external cause; Y99.8 Other external cause status; Z79.82 Long term (current) use of aspirin; Z79.899 Other long term (current) drug therapy
CPT/HCPCS: 23615; 73060; 76000; 80048; 96374; J0666; J0690; J1100; J2250; J2371; J2405; J2704; J3010; J7120

== ENCOUNTER 2024-11-20 09:44 | Outpatient (CLI) | payer MEDICAID, SELFPAY ==
--- NOTE | 2024-11-20 09:48 | XR_ITS ---
FINAL REPORT CLINICAL HISTORY: right shoulder pain from fx, surgery last week. 11/09 pain FINDINGS: RIGHT SHOULDER 2 views were obtained and compared to prior exam from 11/12/2024. There is significant posterior angulation of the distal fracture fragment. 3 orthopedic pins are seen securing the fracture site. IMPRESSION: Significant posterior angulation of the distal fracture fragment. Reviewed, Interpreted and Dictated by Rafael Dorantes MD Transcribed by Aisha Haro Authenticated and . [facility]
== END 2024-11-20 23:59 | disposition home or self-care (01) ==
LOC: RAD 09:45
PROVIDERS: PCP Family Medicine; Visit Provider Orthopaedic Surgery
DX: S42.201A Unspecified fracture of upper end of right humerus, initial encounter for closed fracture (principal); R93.6 Abnormal findings on diagnostic imaging of limbs; Z98.890 Other specified postprocedural states
CPT/HCPCS: 73030

== ENCOUNTER 2024-11-27 09:36 | Outpatient (CLI) | payer MEDICAID, SELFPAY ==
--- NOTE | 2024-11-27 09:43 | XR_ITS ---
FINAL REPORT CLINICAL HISTORY: right shoulder pain COMPARISON: 11/20/2024 FINDINGS: 2 views of the right shoulder were obtained. There has been no change in the 3 surgical pins in the distal humerus. There has been interval increase in callus formation at the fracture site. On the axial image, the angulation of the fracture is unchanged. IMPRESSION: Interval increase in callus formation, but no change in alignment of the humeral fracture. Reviewed, Interpreted and Dictated by Patricia Monae MD Transcribed by Rosita Foster Authenticated and . [facility]
== END 2024-11-27 23:59 | disposition home or self-care (01) ==
LOC: RAD 09:37
PROVIDERS: PCP Family Medicine; Visit Provider Orthopaedic Surgery
DX: S42.201D Unspecified fracture of upper end of right humerus, subsequent encounter for fracture with routine healing (principal); Z98.890 Other specified postprocedural states
CPT/HCPCS: 73030

== ENCOUNTER 2024-12-04 09:54 | Outpatient (CLI) | payer MEDICAID, SELFPAY ==
--- NOTE | 2024-12-04 09:57 | XR_ITS ---
FINAL REPORT TECHNIQUE: Right shoulder 2 views CLINICAL HISTORY: right shoulder orif COMPARISON: None FINDINGS: RIGHT SHOULDER 2 views demonstrate a displaced and angulated fracture of the surgical neck of the humerus. An orthopedic pin is present, however, significant fragment displacement and angulation remains present. The glenohumeral joint is intact. The soft tissues are unremarkable. IMPRESSION: Displaced and angulated fracture of the surgical neck of the humerus, with an orthopedic pin present as described. Reviewed, Interpreted and Dictated by Rafael Dorantes MD Transcribed by Nancy Olmedo Authenticated and [facility]
== END 2024-12-04 23:59 | disposition home or self-care (01) ==
LOC: RAD 09:55
PROVIDERS: PCP Family Medicine; Visit Provider Orthopaedic Surgery
DX: S42.211A Unspecified displaced fracture of surgical neck of right humerus, initial encounter for closed fracture; Z98.890 Other specified postprocedural states
CPT/HCPCS: 73030

== ENCOUNTER 2024-12-11 11:14 | Outpatient (CLI) | payer MEDICAID, SELFPAY ==
--- NOTE | 2024-12-11 11:18 | XR_ITS ---
FINAL REPORT CLINICAL HISTORY: right shoulder pain COMPARISON: 11/27/2024 FINDINGS: 2 views of the right shoulder were obtained. Since the prior exam, 2 of the surgical pins have been removed. There continues to be abnormal alignment at the fracture line. There has been some increasing callus formation. There is no new abnormality. IMPRESSION: Interval removal of 2 of the previously seen surgical pins with some interval healing. No change in alignment. Reviewed, Interpreted and Dictated by Patricia Monae MD Transcribed by Annmarie Rodriguez Authenticated and [facility]
== END 2024-12-11 23:59 | disposition home or self-care (01) ==
LOC: RAD 11:15
PROVIDERS: PCP Family Medicine; Visit Provider Orthopaedic Surgery
DX: S42.201D Unspecified fracture of upper end of right humerus, subsequent encounter for fracture with routine healing (principal); Z98.890 Other specified postprocedural states
CPT/HCPCS: 73030

== ENCOUNTER 2024-12-18 13:50 | Outpatient (CLI) | payer MEDICAID, SELFPAY ==
--- NOTE | 2024-12-18 14:09 | XR_ITS ---
FINAL REPORT CLINICAL HISTORY: right shoulder pain, surgery x 2 weeks ago COMPARISON: 12/11/2024 FINDINGS: Two views of the right shoulder were obtained. Stable appearance of the severely angulated fracture of the proximal humeral shaft. Mild callus formation is noted. There is a single pin in place. The angulation measures up to 65 degrees, similar to prior exam. IMPRESSION: Stable appearance of the severely angulated healing fracture of the proximal humeral shaft. Reviewed, Interpreted and Dictated by Armaan Stephenson MD Transcribed by Annmarie Rodriguez Authenticated and [facility]
== END 2024-12-18 23:59 | disposition home or self-care (01) ==
LOC: RAD 13:51
PROVIDERS: PCP Family Medicine; Visit Provider Orthopaedic Surgery
DX: S42.291D Other displaced fracture of upper end of right humerus, subsequent encounter for fracture with routine healing; Z98.890 Other specified postprocedural states
CPT/HCPCS: 73030

== ENCOUNTER 2024-12-29 13:49 | Outpatient (CLI) | payer MEDICAID, SELFPAY ==
--- NOTE | 2024-12-29 13:52 | XR_ITS ---
FINAL REPORT CLINICAL HISTORY: f/u from right shoulder fx COMPARISON: 12/18/2024 FINDINGS: RIGHT SHOULDER Three views were obtained. There is a healing, transverse fracture through the proximal humeral diaphysis. There is three-quarter shaft width medial displacement of the distal fracture fragment. K-wire is present but does not secure the fracture fragments. There has been some progressive callus formation. IMPRESSION: Fracture as above. Reviewed, Interpreted and Dictated by Rafael Dorantes MD Transcribed by Talisha Hubbard Authenticated and [facility]
== END 2024-12-29 23:59 | disposition home or self-care (01) ==
LOC: RAD 13:50
PROVIDERS: PCP Family Medicine; Visit Provider Orthopaedic Surgery
DX: S42.291D Other displaced fracture of upper end of right humerus, subsequent encounter for fracture with routine healing (principal)
CPT/HCPCS: 73030

== ENCOUNTER 2025-01-15 12:01 | Outpatient (CLI) | payer MEDICAID, SELFPAY ==
--- NOTE | 2025-01-15 12:04 | XR_ITS ---
FINAL REPORT TECHNIQUE: 3 views right shoulder CLINICAL HISTORY: right shoulder pain, followup humerus fx COMPARISON: 12/25/2024 FINDINGS: 3 views of the right shoulder were obtained. In the interval since the prior exam, the surgical pin in the right humeral neck has been removed. Interval healing is noted in the previously seen right proximal humeral fracture with incomplete bony union. The alignment of the fracture fragments is unchanged. The joint space is preserved. Soft tissues are unremarkable. IMPRESSION: 1. Surgical pin in the right humeral neck has been removed since the prior exam. 2. Interval healing is present in the right proximal humeral fracture, with incomplete bony union. Alignment is unchanged. Reviewed, Interpreted and Dictated by Patricia Monae MD Transcribed by Nancy Olmedo Authenticated and [facility]
== END 2025-01-15 23:59 | disposition home or self-care (01) ==
LOC: RAD 12:02
PROVIDERS: PCP Family Medicine; Visit Provider Orthopaedic Surgery
DX: S42.211A Unspecified displaced fracture of surgical neck of right humerus, initial encounter for closed fracture (principal)
CPT/HCPCS: 73030

== ENCOUNTER 2025-02-11 14:36 | Outpatient (CLI) | payer MEDICAID, SELFPAY ==
--- NOTE | 2025-02-11 14:39 | XR_ITS ---
FINAL REPORT CLINICAL HISTORY: fracture evaluation (Apr); follow up COMPARISON: 10/28/2024 FINDINGS: LEFT ANKLE: Three views demonstrate post-ORIF changes of the distal tibia, also seen on the prior exam of 10/28/2024. Posttraumatic deformity of the lateral malleolus and distal tibia are again noted. The joint spaces appear normal. No significant changes noted since the prior exam. 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 Reviewed, Interpreted and Dictated by Armaan Stephenson MD Transcribed by Nancy Olmedo Authenticated and [facility]
--- OUTSIDE RECORDS SUMMARY | 2025-02-11 14:39 | XMS_ITS | Data Portability ---
Author Organization formerly [facility] Address [address] [place] [address] Assessment No assessment recorded. Plan of Treatment Reminders Order Date Submit Date Provider Last Modified By Organization Details Last Modified Time Details Appointments None recorded. Lab None recorded. Referral general surgeon referral 2023 024 SADE Toure Jr, [address], [place], [address], 4 15:39:08 general surgeon referral 2022 023 SADE Toure Jr, [address], [place], [address], 3 08:33:50 Procedures None recorded. Surgeries None recorded. Imaging None recorded. Medication Orders Bactrim DS 800 mg-160 mg tablet 2023 024 [facility], [address] [facility] [address], [place], [address], 4 09:39:43 minocycline 100 mg capsule 2022 023 [facility], [address], [place], [address], 4 09:15:40 cephalexin 500 mg capsule 2022 023 [facility], [address], [place], [address], 4 09:15:29 Patient TargetsNo targets recorded. Patient InstructionsNo instructions recorded. Reason for Referral General Surgeon Referral for Sebaceous cyst of skin Referring Physician: Delfino Cruz [facility], Encounter Date: 09/18/2022 General Surgeon Referral for Sebaceous cyst of skin Referring Physician: Delfino Cruz [facility], Encounter Date: 12/13/2023 Problems No Known Problems Procedures Surgical History Date Name Laterality Status Provider Name and Address Organization Details Recorded Time appendectomy completed Marielos Manolo JACQUE - [facility] 09/18/2022 13:37:58 reduction of open fracture of leg completed Marielos Manolo JACQUE - [facility] 09/18/2022 13:38:21 Imaging Results None recorded. Procedure Notes None recorded. Medical Equipment None Reported. Allergies Allergen ID Allergen Name Allergen Category Reaction Reaction Severity Criticality Documentation Date Start Date Code Code System Note Provider Name and Address Organization Details Recorded Time [id number] morphine medicatio n other moderate high 09/18/2022 7052 RxNorm Marielos Manolo cj, [place] - [facility] 13:35:14 Medications Name Sig Start Date Stop [...] Arterial blood by Pulse oximetry Respiratory rate Pain severity - 0-10 verbal numeric rating [Score] - Reported Systolic And Diastolic Provider Name and Address Organization Details Last Updated DateTime 3 170.18 cm 21.5 kg/m2 86494.9 5 g 97.6 [degF] 94 /min 98 % 98 % 18 /min 10 154/82 mm[Hg] Marielos French [facility] 3 13:33:59 Date Recorded Body height Body mass index (BMI) Body weight Body temperature Heart rate Oxygen saturation Oxygen saturation in Arterial blood by Pulse oximetry Respiratory rate Pain severity - 0-10 verbal numeric rating [Score] - Reported Systolic And Diastolic Provider Name and Address Organization Details Last Updated DateTime 3 170.18 cm 21.5 kg/m2 96764.1 5 g 97.6 [degF] 71 /min 97 % 97 % 18 /min 9 144/80 mm[Hg] Marielos Manolo [facility] 3 11:34:38 Date Recorded Body temperature Heart rate Body weight Oxygen saturation Oxygen saturation in Arterial blood by Pulse oximetry Respiratory rate Pain severity - 0-10 verbal numeric rating [Score] - Reported Systolic And Diastolic Provider Name and Address Organization Details Last Updated DateTime 4 98.1 [degF] 78 /min 06467.1 9 g 98 % 98 % 18 /min 0 128/82 mm[Hg] Marielos Manolo [facility] 4 09:22:33 Social History Question Answer Notes LastModified by Organizat ion Details LastModified Time Tobacco Smoking Status Never Smoker [facility] 09/18/2022 13:36:45 Do You Have An Advance [...] Or The Highest Degree You Have Received? [id number] Information not available 09/18/2022 Have There Been Any Changes To Your Family Or Social Situation? No Information no t available 09/18/2022 What Is The Fluoride Status Of Your Home? Fluoridated Information not available 09/18/2022 Have You Recently Or Are You Planning To Travel To An Area With Zika Virus? No Information not available 09/18/2022 Do You Have A Medical Power Of Clinical Program Manager? No Information not available 09/18/2022 What Was [...] 09/18/2022 Are you able to care for yourself independently? Yes Information not available 09/18/2022 Do you have difficulty dressing, bathing, grooming, or toileting? No Information not available 09/18/2022 What is your exercise level? Moderate Information not available 09/18/2022 Do you use any illicit or recreational drugs? No Information not available 09/18/2022 Do you or have you ever used any other forms of tobacco or nicotine? Yes Information not available 09/18/2022 What is your level of alcohol consumption? Occasional Information not available 09/18/2022 Are you able to walk independently without assistance or assistive devices? YESWOREST Information not available 09/18/2022 Do you [...] colitis N Cerebrovascular Disease N Depression N Guillain-Negley N Sleep Apnea N Aneurysm N Bronchitis N Heart Disease N Suicidal Ideation N Pre-Eclampsia N Hypertension N Osteoporosis N Immunizations Vaccine Type Date Status Note Provider Nam e and Address Organization Details Recorded Time Influenza, split virus, trivalent, PF 12/08/2016 completed JACQUE Mathew - [facility] 09/18/2022 13:34:19 Hep A, adult 03/08/2017 completed JACQUE Mathew - [facility] 09/18/2022 13:34:19 Tdap 08/16/2023 completed JACQUE Mathew - [facility] 12/13/2023 09:15:18 Past Encounters Encounter ID Performer Location Encounter Start Date Encounter Closed Date Diagnosis/Indication Diagnosis SNOMED-CT Code Diagnosis ICD10 Code Diagnosis IMO Codes Diagnosis Note [id number] Delfino Cruz APRN [address] [address] 09/18/2022 13:06:35 09/18/2022 13:53:48 Sebaceous cyst of skin 991453907 L72.3 [id number] Delfino Cruz APRN [address] [address] 09/25/2022 11:22:51 09/25/2022 11:52:28 Abscess of skin and/or subcutaneous tissue 26456063 L02.91 follow up with surgery on [id number] Delfino Cruz APRN [address] [address] 12/13/2023 09:04:04 12/13/2023 09:32:27 Sebaceous cyst of skin 260959649 L72.3 antibiotic ssurgery referralif worsen return Health Concerns Section Related Observation LastModified by Organization Detai ls LastModified Time None Recorded Concern Status LastModified by Organization Details LastModified Time None Recorded Advance Directives Directive N: Payers Insurance Date Sequence Insurance Name Policy Number Policy Phillips Covered Member ID Phillips Member ID Guarantor Name 02/06/2024 1 [facility] (MEDICA[facility]) Ezio Sun [id number] Ezio 02/07/2024 [place] [facility] WRAP [facility]ILLING (MEDICAID) Ezio Sun [id number] Ezio Sun Notes Date Note Type Note Provider Name and Address Organization Details Recorded Time 09/18/2022 text/html 57 yr old male with a red cyst area to the back of the head. He says it has been there for 15 years but just started becoming painful and swollen in the last few weeks. Delfino Cruz APRN [address], [place], [address], [place] - [facility] 09/18/2022 13:55:26 09/25/2022 text/html 57 yr old male presents with a cyst to the back of the head. States he has an appointment for Dr. Toure to work on the area. He said he finished his antibiotic and it is still sore and festered/draining. Delfino Cruz APRN [address], [place], [address], [facility] - [facility] 09/25/2022 11:57:12 12/13/2023 text/html ROS as noted in the HPI 58 yr old male presents for a swollen area/cyst to right clavicle region. He reports the area started as a small bump and has been there for 40 yrs, but now its gotten bigger,red and tender Delfino Cruz, [employer] [address], [place], [address], [place] - [facility] 12/13/2023 09:37:39
== END 2025-02-11 23:59 | disposition home or self-care (01) ==
LOC: RAD 14:37
PROVIDERS: PCP Family Medicine; Visit Provider Nurse Practitioner
DX: S82.832D Other fracture of upper and lower end of left fibula, subsequent encounter for closed fracture with routine healing (principal); S82.62XD Displaced fracture of lateral malleolus of left fibula, subsequent encounter for closed fracture with routine healing
CPT/HCPCS: 73610

== ENCOUNTER 2025-03-12 10:29 | Outpatient (CLI) | payer MEDICAID, SELFPAY ==
--- NOTE | 2025-03-12 10:36 | XR_ITS ---
FINAL REPORT CLINICAL HISTORY: right shoulder pain COMPARISON: None FINDINGS: RIGHT SHOULDER Two views demonstrate deformity of the proximal humerus. There is heterotopic bone and prominent callus formation associated with healing fracture of the proximal humeral neck. There is no acute fracture or dislocation. The visualized joint spaces are normally aligned. The soft tissues are unremarkable. IMPRESSION: Healing right humeral neck fracture with no acute bony abnormality. Reviewed, Interpreted and Dictated by Rafael Dorantes MD Transcribed by Rosita Foster Authenticated and [facility]
== END 2025-03-12 23:59 ==
LOC: RAD 10:30
PROVIDERS: PCP Family Medicine; Visit Provider Orthopaedic Surgery
DX: S42.291D Other displaced fracture of upper end of right humerus, subsequent encounter for fracture with routine healing (principal); X58.XXXD Exposure to other specified factors, subsequent encounter
CPT/HCPCS: 73030